=== PATIENT | female | born 1990 | race Caucasian/White ===

== ENCOUNTER 2018-05-13 15:11 | Outpatient (CLI) | payer BC, SELFPAY ==
[2018-05-13 17:23] LABS: *AMPHETAMINES SCREEN URINE Negative (Negative); *BARBITURATES SCREEN URINE Negative (Negative); *BENZODIAZEPINES SCREEN URINE Negative (Negative); Cannabinoids THC Negative (Negative); Cocaine Screen,Urine Negative (Negative); METHADONE URINE SCREEN Negative (Negative); OPIATES URINE SCREEN Negative (Negative)
[2018-05-13 17:25] LABS: Tricyclic Antidepressants Negative (Negative)
[2018-05-20 15:19] LABS: Buprenorphine Negative; Norbuprenorphine Negative
== END 2018-05-13 15:12 ==
PROVIDERS: PCP Nurse Practitioner Family; Visit Provider Midwife
DX: Z34.91 Encounter for supervision of normal pregnancy, unspecified, first trimester (principal)
CPT/HCPCS: 80307; 88142; 87086

== ENCOUNTER 2018-05-13 16:28 | Outpatient (REF) | payer BC, SELFPAY ==
--- NOTE | 2018-05-13 15:30 | PAPFT_PTH ---
PATIENT: Becky Rascon LOC: [facility] U#:[id number] AGE/SX: 27/F ROOM: RE05/13/[address]: Amelia Crooks : 1990 BED: DIS: 05/13/2018 SPEC #: [id number] RECD: 05/13/18 17:13 STATUS: KAREN RERamona #: [id number] IVÁN: 05/13/18 15:[address]: Amelia Crooks DEPT: [facility] Cytology RECD BY: Rosa Vargas ENTERED: 05/13/18 17:13 SP TYPE: PAPFT BROOKS DR: Alondra Cavanaugh, SKI TECHNICIAN Tissues: 1 - CX/ENDOCX FOR PAP SMEARS Procedures: PAP THIN PREP/UVM Screening Comments: [id number]
[2018-05-16 15:06] LABS: Chlamydia Result Negative; GC Result Negative; Specimen Description CERVICAL
== END 2018-05-13 16:29 ==
LOC: LBN 16:28
PROVIDERS: PCP Nurse Practitioner Family; Visit Provider Midwife
DX: Z34.91 Encounter for supervision of normal pregnancy, unspecified, first trimester (principal); Z11.3 Encounter for screening for infections with a predominantly sexual mode of transmission; Z12.4 Encounter for screening for malignant neoplasm of cervix
CPT/HCPCS: 87491; 87591; 88142

== ENCOUNTER 2018-05-27 09:12 | Outpatient (CLI) | payer BC, SELFPAY ==
[2018-05-27 10:45] LABS: Abs Immature Grans 0.01 k/cumm (0.0-0.09); Absolute Basophil Count 0.01 k/cumm (0.0-0.2); Absolute Eosinophil Count 0.17 k/cumm (0.0-0.7); Absolute Lymphocyte Count 1.36 k/cumm (1.2-3.4); Absolute Monocyte Count 0.56 k/cumm (0.11-0.7); Absolute Neutrophil Count 2.87 k/cumm (1.2-6.7); Basophils % 0.2; Eosinophils % 3.4; HCT 38.1 % (36.0-46.0); HGB 13.1 g/dL (12.0-15.5); Immature Grans % 0.2; Lymphocytes % 27.3; Mean Corp. HGB Concentration 34.4 g/dL (32.0-36.0); Mean Corpuscular Hemoglobin 30.8 pg (27.0-33.0); Mean Corpuscular Volume 89.6 fL (80-95); Mean Platelet Volume 8.7 fL (8.0-11.0); Monocytes % 11.2; Neutrophils % 57.7; Platelet Count 235 x1000/uL (130-400); RBC 4.25 m/cumm (4.00-5.20); RBC Distribution Width 11.8 % (11.7-14.6); White Blood Cell Count 4.98 k/cumm (4.4-10.8)
[2018-05-27 10:58] LABS: Glucose,1 Hr (Glucola) 40 mg/dL (80-140)
[2018-05-29 13:24] LABS: HIV-1/2 Ag & Ab Screen Negative (NEGAT)
[2018-05-30 13:03] LABS: Syphilis Serology (RPR) Negative (Negative)
[2018-05-30 13:23] LABS: Rubella IgG Ab (UVM) Positive
[2018-05-30 14:19] LABS: Hepatitis B Surface Ag Negative (NEGAT)
[2018-05-30 14:45] LABS: Hepatitis C Ab w Rflx HCV PCR Negative (NEGAT)
== END 2018-05-27 09:32 ==
PROVIDERS: PCP Nurse Practitioner Family; Visit Provider Midwife
DX: Z34.91 Encounter for supervision of normal pregnancy, unspecified, first trimester (principal)
CPT/HCPCS: 36415; 80055; 82950; 86850; 86900; 86901

== ENCOUNTER 2018-07-06 00:46 | Outpatient (CLI) | payer BC, SELFPAY ==
--- NOTE | 2018-07-06 14:12 | DI.US_ITS ---
SYMPTOMS/DIAGNOSIS: ROUTINE CARE, Z34.90 OB ULTRASOUND: Many abnormalities cannot be diagnosed. A normal exam does not exclude a congenital anomaly. Radiology No. [id number] LMP: 03/01/18 Exam Date: 07/06/[address] [facility] wks days on EDC ([facility]) 12/06/17 Confirmed: HISTORY: ---- PREDICTED GESTATIONAL AGE NUMBER 18 weeks with a range of 17 weeks to 19 weeks. 1 Determined by___1STUS__X_LMP___HISTORY PLACENTA PRESENTATION Grade 0-I Cephalic___ Anterior___Posterior_X__ Breech__X__ Right Left Transverse(head right___ Fundal___Low-lying___Previa___ Transverse(head left___ Varying BIOMETRY AMNIOTIC FLUID BPD: 42 mm 18+4 weeks Normal HC: 155 mm 18+5 weeks AC: 140 mm 19+2 weeks FL: 28 mm 18+4 weeks AMNIOTIC FLUID INDEX >26 WK CRL: mm weeks Cisterna Magna: 3 mm CI: 0.8 RUQ: LUQ Cerebellum: 1.8 cm EFW: grams Percentile RLQ: LLQ Total: cms Composite AGE= 18+5 wks EDC by US: 12/02/18 BIOPHYSICAL PROFILE ANATOMY IDENTIFIED SCORE 0/2 Heart: 4-Chamber_X__Rate:BPM 149 LVOT:___X RVOT:___X Amniotic Fluid(>2cms)____ Stomach:__X Kidneys:__X Respirations (>30 secs) Bladder:___X Post. Fossa:___X Body Flex/Extension 3-vessel cord:__X Ventricles:___X Cord insertion:__X___ Lips:_X___ Extremity Flex/Extension Spinal morphology:____X____Nose:__X___ Total Score= Palate:__X NS=not seen COMMENTS: There is a single intrauterine gestation in breech position. The placenta is posterior. The biometric measurements correspond to 18 weeks 5 days. The amniotic fluid appears normal. No abnormalities are identified. IMPRESSION: survey is within normal limits.
== END 2018-07-06 01:06 ==
PROVIDERS: PCP Nurse Practitioner Family; Visit Provider Advanced Practice Midwife
DX: Z34.92 Encounter for supervision of normal pregnancy, unspecified, second trimester (principal)
CPT/HCPCS: 76805

== ENCOUNTER 2018-09-12 08:13 | Outpatient (CLI) | payer BC, SELFPAY ==
[2018-09-12 09:08] LABS: Glucose,1 Hr (Glucola) 90 mg/dL (80-140)
[2018-09-12 09:28] LABS: HCT 35.9 % (36.0-46.0); HGB 12.1 g/dL (12.0-15.5); Mean Corp. HGB Concentration 33.7 g/dL (32.0-36.0); Mean Corpuscular Hemoglobin 30.9 pg (27.0-33.0); Mean Corpuscular Volume 91.8 fL (80-95); Mean Platelet Volume 8.8 fL (8.0-11.0); Platelet Count 247 x1000/uL (130-400); RBC 3.91 m/cumm (4.00-5.20); RBC Distribution Width 11.9 % (11.7-14.6); White Blood Cell Count 6.42 k/cumm (4.4-10.8)
== END 2018-09-12 08:33 ==
PROVIDERS: Advanced Practice Midwife; PCP Nurse Practitioner Family; Visit Provider Advanced Practice Midwife
DX: Z34.93 Encounter for supervision of normal pregnancy, unspecified, third trimester (principal)
CPT/HCPCS: 36415; 82950; 85027

== ENCOUNTER 2018-11-14 12:08 | Outpatient (REF) | payer BC, SELFPAY | END 2018-11-14 12:28 | LOC: LBN 12:08 | PROVIDERS: PCP Nurse Practitioner Family; Visit Provider Advanced Practice Midwife | DX: Z34.93 Encounter for supervision of normal pregnancy, unspecified, third trimester (principal); Z36.85 Encounter for antenatal screening for Streptococcus B | CPT/HCPCS: 87081 ==

== ENCOUNTER 2018-12-12 07:45 | Emergency (ER) | payer BC, SELFPAY ==
[2018-12-12 07:50] VITALS: BP 130/82; PULSE 78; RESP 16; TEMP 36.5; O2SAT 100
--- NOTE | 2018-12-12 07:53 | W.ED.GENAD ---
Discharge Plan Discharge Details Chief Complaint: ACCOUNTING BOOKKEEPER Primary Care Provider: Alondra Cavanaugh ED Provider: Samia Lund Home Meds and New Rx's Prescriptions: No Action breast pump device .ROUTE .MEDSUPPLY Qty: 1 RF: 0 levalbuterol tartrate [Xopenex HFA] 15 GM HFA aerosol inhaler 1 - 2 puff Inhalation Q6H PRN Qty: 1 RF: 3 Elite-OB 1 EACH tablet 1 ea PO RF: 0 epinephrine [EpiPen] 0.3 MG/0.3 ML auto-injector 0.3 mg IJ PRN PRN (Reason: Anaphylaxis) Qty: 1 RF: 0 Medical Decision Making Becky aRscon is a 28-year-old woman with history of asthma presenting to the emergency department complaining of labor contractions. On exam patient is well and nontoxic appearing. She is gwendolyn approximately every 4 minutes. She has a benign physical exam. Patient has reported that her water has not broken, and there has been no leakage of fluids. Will defer vaginal exam. Concern for first stage of labor. Exam/history is not consistent with precipitous delivery, preeclampsia, other acute emergent life-threatening pathology. Plan to transfer patient to labor and delivery. Patient accepted to labor and delivery by Dr. Garcia. Medical Records Medical records reviewed: Yes I reviewed the patient's medical records. HPI General Mode of arrival: ambulatory. Date/Time Provider Initiated Documentation: 12/12/18 07:53. Limitations to Documentation: no limitations. Information obtained by: patient, family, RN notes reviewed and old records reviewed. HPI Narrative: Becky Rascon is a 28 y/o woman without reported major medical problems presenting to the emergency department with labor contractions. Patient is , due 12/14/18. Patient reports that at approximately 3 AM this morning she began having contractions. She has had no leaking of fluids or vaginal bleeding. Patient reports contractions are coming every 3-5 minutes approximately. She reports that they have gotten stronger since onset. She has had no complications during this , and takes no medications other than vitamins. Patient reports that her prior and delivery were uncomplicated. She denies any pain, fevers or other symptoms other than labor contractions. Related Data Home Medications Medication Instructions Recorded Confirmed levalbuterol tartrate [Xopenex HFA] 1 - 2 puff INHALATION Q6H PRN #1 08/03/16 12/12/18 inhaler epinephrine [Epipen] 0.3 mg IJ PRN PRN #1 auto.injct 12/01/17 12/12/18 cwv-sxcb-qldi-folic 1 ea PO 05/13/18 12/05/18 [Elite-Ob Caplet] breast pump #1 each 10/24/18 12/05/18 Previous Rx's Medication Instructions Recorded epinephrine [Epipen] 0.3 mg IJ PRN PRN #1 auto.injct 12/01/17 breast pump #1 each 10/24/18 Allergies Allergy/AdvReac Type Severity Reaction Status Date / Time fish derived Allergy Unverified 12/12/18 07:53 shrimp Allergy Unverified 12/12/18 07:53 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 Review of Systems Review of Systems Constitutional: denies fevers Eyes: denies eye pain ENT: denies facial pain, dental pain, sore throat Cardiovascular: denies chest pain, reports mild lower extremity edema chronic over the past few weeks and unchanged Respiratory: denies SOB GI: denies abdominal pain, vomiting : denies flank pain MSK: denies back pain, neck pain, arthralgias, myalgias Skin: denies rash Neuro: denies headaches [facility] Medical History Family history of genetic disorder (Chronic) BMI 38.0-38.9,adult (Chronic) (Acute) Family History Grandfather Essential hypertension Hypercholesterolemia Grandmother No problems noted. Daughter Epilepsy Vitamin B6 deficiency syndrome Social History Smoking/Tobacco Use Status: Never Alcohol Intake: never Drug use: Never Substance use type: does not use Household members: significant other and children current occupation: works @ [employer] Pets and animals: Yes (1 dog) Special mansoor needs: No Seatbelt use: always Helmet use: Yes Drive intox or ride w/intox truck driver's offsider: No Water heater temp set <120 deg: Yes Working smoke detector in home: Yes Fire extinguisher in home: Yes Carbon monox detector in home: Yes Firearms in home: Yes Firearms unloaded and locked: Yes Do you feel safe in your relationship?: Yes Victim of physical abuse: No Victim of emotional abuse: No Victim of sexual abuse: No History History 2 Para 1 Hx # Term Pregnancies 0 Multiple births 0 Hx # Pregnancies 0 Ectopic pregnancies 0 AB induced 0 Hx Number of Living Children 1 AB spontaneous 0 Past Pregnancies Del. Date GA/Weeks # Outcome Route Wgt Sex Labor Lgth Anesthesia Location Prov Compl 12/15/12 40 Successful vaginal 3.317 kg Female 17 hrs [facility] Delivery Date: 12/15/12 On 07/06/18 @ 15:48 Sarahi Rivero 45 minute second stage Anita Exam Narrative Exam Narrative: Constitutional: well and uir-trumo-xiirjleyt, pleasant, conversing normally, uncomfortable during contractions HENT: head atraumatic/normocephalic/normal inspection, mucous membranes moist Eyes: conjunctiva normal, sclera normal, pupils 3mm b/l Neck: no stridor, normal ROM, trachea midline Chest: normal inspection Resp: normal work of breathing, LCTAB Cardio: normal rate, normal rhythm, no murmur appreciated GI: abdomen gravid, nontender to palpation Skin: warm, dry, normal color, no rash Neuro: alert, not altered, grossly non-focal, normal tone, normal gait Ext: no edema or posterior calf tenderness Psych: normal mood, normal affect, normal behavior Course Vital Signs Temperature 36.5 C 12/12/18 07:50 Pulse 78 12/12/18 07:50 Respiratory Rate 16 12/12/18 07:50 Blood Pressure 130/82 12/12/18 07:50 Pulse Oximetry 100 12/12/18 07:50 Temperature 36.5 C 12/12/18 07:50 Temperature Source Skin 12/12/18 07:50 Pulse 78 12/12/18 07:50 Respiratory Rate 16 12/12/18 07:50 Respiratory Effort Non-Labored 12/12/18 07:50 Blood Pressure 130/82 12/12/18 07:50 Blood Pressure Position Sitting 12/12/18 07:50 Pulse Oximetry 100 12/12/18 07:50 Oxygen Delivery Method Room Air 12/12/18 07:50 Oxygen Flow Rate 0 12/12/18 07:50 Pain Level 2 12/12/18 07:50
--- NOTE | 2018-12-12 08:00 | ED.GENADUL_ITS ---
Discharge Plan Discharge Details Chief Complaint: RESIDENTIAL REAL ESTATE APPRAISER Primary Care Provider: Alondra Cavanaugh ED Provider: Samia Lund Home Meds and New Rx's Prescriptions: No Action breast pump device .ROUTE .MEDSUPPLY Qty: 1 RF: 0 levalbuterol tartrate [Xopenex HFA] 15 GM HFA aerosol inhaler 1 - 2 puff Inhalation Q6H PRN Qty: 1 RF: 3 Elite-OB 1 EACH tablet 1 ea PO RF: 0 epinephrine [EpiPen] 0.3 MG/0.3 ML auto-injector 0.3 mg IJ PRN PRN (Reason: Anaphylaxis) Qty: 1 RF: 0 Medical Decision Making Becky Rascon is a 28-year-old woman with history of asthma presenting to the emergency department complaining of labor contractions. On exam patient is well and nontoxic appearing. She is gwendolyn approximately every 4 minutes. She has a benign physical exam. Patient has reported that her water has not broken, and there has been no leakage of fluids. Will defer vaginal exam. Concern for first stage of labor. Exam/history is not consistent with precipitous delivery, preeclampsia, other acute emergent life-threatening pathology. Plan to transfer patient to labor and delivery. Patient accepted to labor and delivery by Dr. Garcia. Medical Records Medical records reviewed: Yes I reviewed the patient's medical records. HPI General Mode of arrival: ambulatory . Date/Time Provider Initiated Documentation: 12/12/18 07:53 . Limitations to Documentation: no limitations . Information obtained by: patient, family, RN notes reviewed and old records reviewed . HPI Narrative: Becky Rascon is a 28 y/o woman without reported major medical problems presenting to the emergency department with labor con tractions. Patient is , due 12/14/18. Patient reports that at approximately 3 AM this morning she began having contractions. She has had no leaking of fluids or vaginal bleeding. Patient reports contractions are coming every 3-5 minutes approximately. She reports that they have gotten stronger since onset. She has had no complications during this , and takes no medications other than vitamins. Patient reports that her prior and delivery were uncomplicated. She denies any pain, fevers or other symptoms other than labor contractions. Related Data Home Medications Medication Instructions Recorded Confirmed levalbuterol tartrate [Xopenex HFA] 1 - 2 puff INHALATION Q6H PRN #1 08/03/16 12/12/18 inhaler epinephrine [Epipen] 0.3 mg IJ PRN PRN #1 auto.injct 12/01/17 12/12/18 qfw-tadi-jkfd-folic 1 ea PO 05/13/18 12/05/18 [Elite-Ob Caplet] breast pump #1 each 10/24/18 12/05/18 Previous Rx's Medication Instructions Recorded epinephrine [Epipen] 0.3 mg IJ PRN PRN #1 auto.injct 12/01/17 breast pump #1 each 10/24/18 Allergies Allergy/AdvReac Type Severity Reaction Status Date / Time fish derived Allergy Unverified 12/12/18 07:53 shrimp Allergy Unverified 12/12/18 07:53 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 Review of Systems Review of Systems Constitutional: denies fevers Eyes: denies eye pain ENT: denies facial pain, dental pain, sore throat Cardiovascular: denies chest pain, reports mild lower extremity edema chronic over the past few weeks and unchanged Respiratory: denies SOB GI: denies abdominal pain, vomiting : denies flank pain MSK: denies back pain, neck pain, arthralgias, myalgias Skin: denies rash Neuro: denies headaches [facility] Medical History Family history of genetic disorder (Chronic) BMI 38.0-38.9,adult (Chronic) (Acute) Family History Grandfather Essential hypertension Hypercholesterolemia Grandmother No problems noted. Daughter Epilepsy Vitamin B6 deficiency syndrome Social History Smoking/Tobacco Use Status: Never Alcohol Intake: never Drug use: Never Substance use type: does not use Household members: significant other and children current occupation: works @ [employer] Pets and animals: Yes (1 dog) Special mansoor needs: No Seatbelt use: always Helmet use: Yes Drive intox or ride w/intox driver guide: No Water heater temp set <120 deg: Yes Working smoke detector in home: Yes Fire extinguisher in home: Yes Carbon monox detector in home: Yes Firearms in home: Yes Firearms unloaded and locked: Yes Do you feel safe in your relationship?: Yes Victim of physical abuse: No Victim of emotional abuse: No Victim of sexual abuse: No History History 2 Para 1 Hx # Term Pregnancies 0 Multiple births 0 Hx # Pregnancies 0 Ectopic pregnancies 0 AB induced 0 Hx Number of Living Children 1 AB spontaneous 0 Past Pregnancies Del. Date GA/Weeks # Outcome Route Wgt Sex Labor Lgth Anesthesia Location Prov Complic 12/15/12 40 Successful vaginal 3.317 kg Female 17 hrs [facility] Delivery Date: 12/15/12 On 07/06/18 @ 15:48 Sarahi Rivero 45 minute second stage Anita Exam Narrative Exam Narrative: Constitutional: well and ijf-oxkrj-ujmgcxeqs, pleasant, conversing normally, uncomfortable during contractions HENT: head atraumatic/normocephalic/normal inspection, mucous membranes moist Eyes: conjunctiva normal, sclera normal, pupils 3mm b/l Neck: no stridor, normal ROM, trachea midline Chest: normal inspection Resp: normal work of breathing, LCTAB Cardio: normal rate, normal rhythm, no murmur appreciated GI: abdomen gravid, nontender to palpation Skin: warm, dry, normal color, no rash Neuro: alert, not altered, grossly non-focal, normal tone, normal gait Ext: no edema or posterior calf tenderness Psych: normal mood, normal affect, normal behavior Course Vital Signs Temperature 36.5 C 12/12/18 07:50 Pulse 78 12/12/18 07:50 Respiratory Rate 16 12/12/18 07:50 Blood Pressure 130/82 12/12/18 07:50 Pulse Oximetry 100 12/12/18 07:50 Temperature 36.5 C 12/12/18 07:50 Temperature Source Skin 12/12/18 07:50 Pulse 78 12/12/18 07:50 Respiratory Rate 16 12/12/18 07:50 Respiratory Effort Non-Labored 12/12/18 07:50 Blood Pressure 130/82 12/12/18 07:50 Blood Pressure Position Sitting 12/12/18 07:50 Pulse Oximetry 100 12/12/18 07:50 Oxygen Delivery Method Room Air 12/12/18 07:50 Oxygen Flow Rate 0 12/12/18 07:50 Pain Level 2 12/12/18 07:50
== END 2018-12-12 08:07 ==
PROVIDERS: Emergency Provider Student in an Organized Health Care Education/Training Program; PCP Nurse Practitioner Family
DX: N85.8 Other specified noninflammatory disorders of uterus (principal); Z3A.39 39 weeks gestation of pregnancy
CPT/HCPCS: 99281

== ENCOUNTER 2018-12-12 07:58 | Inpatient (IN) | payer BC, SELFPAY ==
[2018-12-12 10:01] LABS: HCT 38.7 % (36.0-46.0); HGB 13.3 g/dL (12.0-15.5); Mean Corp. HGB Concentration 34.4 g/dL (32.0-36.0); Mean Corpuscular Hemoglobin 30.6 pg (27.0-33.0); Mean Platelet Volume 9.8 fL (8.0-11.0); Platelet Count 230 x1000/uL (130-400); RBC 4.35 m/cumm (4.00-5.20); RBC Distribution Width 13.2 % (11.7-14.6); White Blood Cell Count 10.84 k/cumm (4.4-10.8)
[2018-12-12] MEDS: Lidocaine 1% Pres-Free 5 ML VIAL IJ (13:05)
[2018-12-13 07:21] LABS: HCT 38.6 % (36.0-46.0); Mean Corp. HGB Concentration 33.7 g/dL (32.0-36.0); Mean Corpuscular Volume 88.9 fL (80-95); Mean Platelet Volume 9.6 fL (8.0-11.0); Platelet Count 210 x1000/uL (130-400); RBC 4.34 m/cumm (4.00-5.20); RBC Distribution Width 13.4 % (11.7-14.6); White Blood Cell Count 9.41 k/cumm (4.4-10.8)
--- NOTE | 2018-12-13 20:08 | W.PM.PROGNOT ---
Date of Service Date of service: 12/13/18 Time of Service: 15:12 Assessment and Plan (1) Insertion of implantable subdermal contraceptive: Current visit: Yes Status: Acute Subjective Interval history since last seen: Becky desires immediate nexplanon insertion for contraception. yesterday without complications. Permit reviewed and signed. Objective Objective Clinical Data: Laboratory Results WBC 9.41 k/cumm (4.4-10.8) 12/13/18 06:56 RBC 4.34 m/cumm (4.00-5.20) 12/13/18 06:56 Hgb 13.0 g/dL (12.0-15.5) 12/13/18 06:56 Hct 38.6 % (36.0-46.0) 12/13/18 06:56 MCV 88.9 fL (80-95) 12/13/18 06:56 MCH 30.0 pg (27.0-33.0) 12/13/18 06:56 MCHC 33.7 g/dL (32.0-36.0) 12/13/18 06:56 RDW 13.4 % (11.7-14.6) 12/13/18 06:56 Plt Count 210 x1000/uL (130-400) 12/13/18 06:56 MPV 9.6 fL (8.0-11.0) 12/13/18 06:56 Patient ABO/Rh A Positive 12/12/18 09:41 Antibody Screen Negative 12/12/18 09:41 Procedures Other Procedure Description/Findings: Permit signed and site marked with a pen and site cleansed with betadine and alcohol. 1 cc. xylocaine infused along site and Nexplanon inserted easily. Pressure dressing applied and precautions reviewed with patient
== END 2018-12-14 11:15 | disposition home or self-care (01) | DRG 807 ==
PROVIDERS: Advanced Practice Midwife; Admitting Provider Advanced Practice Midwife; PCP Nurse Practitioner Family; Visit Provider Advanced Practice Midwife
DX: O70.0 First degree perineal laceration during delivery (principal); Z37.0 Single live birth; O48.0 Post-term pregnancy; Z3A.40 40 weeks gestation of pregnancy; Z30.017 Encounter for initial prescription of implantable subdermal contraceptive
CPT/HCPCS: 36415; 85027; 86850; 86900; 86901; 99231

== ENCOUNTER 2019-07-08 14:05 | Emergency (ER) | payer MEDICAID, SELFPAY ==
[2019-07-08 14:10] VITALS: BP 135/75; PULSE 120; RESP 18; TEMP 37.1; O2SAT 100
--- NOTE | 2019-07-08 15:03 | ED.GENADUL_ITS ---
Discharge Plan Disposition Condition: Improving Discharge Details Chief Complaint: Headache Clinical Impression: Migraine, Viral illness Primary Care Provider: Alondra Cavanaugh ED Provider: Amelia Soto Home Meds and New Rx's Prescriptions: No Action (DME) breast pump device See Dose Instructions .ROUTE .MEDSUPPLY Qty: 1 RF: 0 Nexplanon 68 mg implant 1 implant SBD ONCE RF: 0 Elite-OB 1 EACH tablet 1 ea PO RF: 0 epinephrine [EpiPen] 0.3 MG/0.3 ML auto-injector 0.3 mg IJ PRN PRN (Reason: Anaphylaxis) Qty: 1 RF: 0 Discharge Instructions Instructions: Viral Syndrome (ED) Additional Instructions: Drink plenty of fluids. Rest activities as tolerated. Use Tylenol or Motrin for soreness if needed. These medications are safe when breast-feeding For increasing fever, worsening headache worsening neck pain as discussed your symptoms have reevaluation in the emergency room Recheck with primary care doctor if not improved in the next 1 to 2 days. Return for any chest pain, difficulty breathing, shortness of breath, difficulty breathing or increased respiratory effort when exerting yourself or for sensation of your heart racing. Observe for dizziness or lightheadedness. Return for any worsening or concerns. You were noted to have a mildly elevated heart rate when you were discharged are aware of this but would prefer not to pursue any additional testing at this time. Please return for any worsening or concerning symptoms sooner if needed as discussed Your strep testing as well as your flu testing were negative Discharge Data Discharge Date/Time-TO BE ENTERED AT DEPARTURE: 07/08/19 16:57 Medical Decision Making Is a very pleasant 28-year-old woman who presents to the emergency room complaining of migraine. Patient denies any specific injury or trauma to her head. Patient reports migraines are well known to her and this is very typical of her onset of migraines. Similar in character and onset. Patient reports no significant relief since onset yesterday, seeking management of her migraine and relief of her pain. Patient reports pain is behind her eyes diffusely through her head and to her posterior neck. Patient does report she had ill family members at home this week with cough and cold symptoms. Patient did report mild malaise today. After reevaluation after receiving Toradol and Reglan patient feels significantly better. Her headache has improved from a 7 to a 1 out of 10. Patient reports photophobia is improved. Patient reports nausea is improved. Patient reports mild posterior headache remains but again is significantly improved. Patient feels comfortable for discharge home at this time. Patient was noted to be mildly tachycardic which did also improved with IV fluids. Patient reports she feels well hydrated at this time and has desire to void. Is tolerating fluids by mouth. Patient has low-grade temperature and may have onset of viral type symptoms which may have triggered her migraine. Patient has no meningeal symptoms at this time. Is ranging her neck without any nuchal rigidity. No midline tenderness on exam. Upon discharge planning patient was again noted to be persistently mildly tachycardic. Patient's heart rate 108. I did discuss this with the patient. Patient is afebrile at this time. Denies chest pain, difficult to breathing with shortness of breath, palpitations, dizziness or lightheadedness at this time. I offered the patient a repeat of IV fluids versus further evaluation for her tachycardia however at this time she would prefer to decline any further evaluation and IV fluids. She would prefer to be discharged home at this time. She is not feeling anxious or symptomatic related to her tachycardia and would prefer close observation return for any alarming symptoms sooner if needed. Patient is aware of my concerns for tachycardia at this time as it is a change from her baseline but will closely monitor this, follow-up with her doctor and return for any alarming symptoms. The patient was stable and requested discharge. Prior to discharge, my usual and customary return precautions were reviewed with the patient - this included follow-up instructions and reasons to return to the Emergency Department if conditions worsens, does not improve as expected, or other new concerns arise. HPI General Date/Time Provider Initiated Documentation: 07/08/19 14:08 . HPI Narrative: Is a 28-year-old patient who presents with a known history of migraines typically gets 1 migraine per year. Patient reports yesterday evening on the way home she had onset of mild nausea described as a motion sickness type feeling then had onset of light sensitivity which preceded onset of her headache yesterday. Patient reports headache persists. Patient reports pain in her teeth her eyes and her head diffusely radiating back to her neck. Denies neck pain with range of motion. Patient reports this is very typical of her migraine presentation similar in character and location. Similar associated symptoms. Patient reports no nausea while at rest but does report increasing nausea with motion. Denies radiating pain into arms or legs. Denies tinnitus. Patient denies any measured fever. Patient does report her family both her and child have been sick at home this week with fever and viral type symptoms. Patient denies significant nasal congestion does report mild sore throat. Mild low-grade fever noted this morning. Unsure if she is becoming ill. Denies any begin cough, difficulty being short of breath or wheezing. Denies any chest pain. Denies abdominal pain. No other concerns or complaints at this time. Patient denies any risk or concern of as she is not sexually active currently. Patient is currently breast-feeding a 7-month-old child. Took no medications prior to arrival as she was concerned with her breast-feeding if she was capable of taking patient typically reports at onset of her headache she uses ibuprofen but did not take this time. Related Data Home Medications Medication Instructions Recorded Confirmed epinephrine [Epipen] 0.3 mg IJ PRN PRN #1 auto.injct 12/01/17 05/31/19 psx-poyy-awpc-folic 1 ea PO 05/13/18 05/31/19 [Elite-Ob Caplet] breast pump #1 each 10/24/18 05/31/19 etonogestrel 68 mg subdermal 1 implant SBD ONCE 12/26/18 05/31/19 implant Previous Rx's Medication Instructions Recorded epinephrine [Epipen] 0.3 mg IJ PRN PRN #1 auto.injct 12/01/17 breast pump #1 each 10/24/18 Allergies Allergy/AdvReac Type Severity Reaction Status Date / Time fish derived Allergy Unverified 05/31/19 10:31 shrimp Allergy Unverified 05/31/19 10:31 General Stated Complaint: Headache RANDELL: 4 Review of Systems All systems reviewed & are unremarkable except as noted in HPI and below Constitutional Constitutional: Denies chills, Denies fever(s), Reports headache(s) and Reports malaise Eyes Eyes: Denies loss of vision ENT Ears, Nose, Mouth, and Throat: Denies vertigo, Denies dizziness, Denies otalgia, Reports headache(s), Reports sinus pain, Denies sinus pressure and Reports sore throat Cardiovascular Cardiovascular: Denies dyspnea Respiratory Respiratory: Denies cough, Denies dyspnea and Denies stridor Gastrointestinal Gastrointestinal: Denies abdominal pain, Denies cramping, Denies diarrhea and Reports nausea Neurologic Neurologic: Denies vertigo, Denies dizziness, Reports headache(s), Denies loss of vision and Denies paresthesias PFSH Medical History BMI 38.0-38.9,adult (Chronic) Family history of genetic disorder (Chronic) P5P - B6 deficiency - daughter Ganglion cyst of dorsum of right wrist (Acute Unknown) Insertion of implantable subdermal contraceptive (Acute) Plantar fasciitis, bilateral (Acute) (Resolved) Family History Grandfather Essential hypertension Hypercholesterolemia Grandmother No problems noted. Daughter Epilepsy Vitamin B6 deficiency syndrome Social History Smoking/Tobacco Use Status: Never Alcohol Intake: never Drug use: Never Substance use type: does not use Household members: significant other and children current occupation: works @ [employer] 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 Date GA/Weeks # Outcome Route Wgt Sex Labor Lgth Anesthes ia Location Prov Complic 12/15/12 40 Successful vaginal 3.317 kg Female 17 hrs regional [facility] 12/12/18 40 No Successful vaginal 3.827 kg Female 9 hours 50 min reg ional Sarahi Rivero CNM Delivery Date: 12/15/12 On 07/06/18 @ 15:48 Sarahi Rivero 45 minute second stage Anita Delivery Date: 12/12/18 On 12/21/18 @ 11:03 Marla Martinez small periurethral laceration/1st degree; suture w/3-0 vicryl; Nitrous oxide for pain relief @ 6-7 cm, requested again at 9cm. Exam Narrative Exam Narrative: CONST: Healthy appearing patient, in no acute distress. Well hydrated. Alert and alert. HENMT: Head nomocephalic, normal to inspection. Atraumatic. Hearing grossly nor mal. External ear canal no erythema or swelling. TM normal bilaterally. Nose normal to inspection. No rhinnorhea. Normal facial exam. Oral mucosa normal. Tounge normal. Dentition normal. Mild pharyngeal erythema.. Uvula midline. EYES: General normal appearance. Alignment normal. Eyelids normal. Conjunctiva normal. Sclera normal. PERRL. NECK: Normal visual inspection. FROM. No lymphadenopathy. Trachea midline. No Midline tenderness. CHEST: Normal insepection of the chest. RESP: Normal respiratory effort. Speaking full sentences. No cough. No wheezing. No retractions. Clear to auscaltation. Breath sound equal and present bilaterally. CARDIO: No JVD. Normal PMI. Regular Rate. Regular Rhythm. Normal peripheral pulses. GI: Normal inspection of abdomen. No distension. Soft. Nontender. Bowel sounds present in all 4 quadrants. No rebound. No gaurding. MUSCULOSKELETAL: Normal Gait. FROM of all extremities. Distal neurovascularly intact. Sensation intact distally. SKIN: Normal. Dry. No rashes. NEURO: Alert and awake. Speech clear. Mild photosensitivity. PSYCH: Normal affect. Cooperative. Course Vital Signs Vital signs: Vital Signs Temperature 37.1 C 07/08/19 14:10 Pulse 120 H 07/08/19 14:10 Respiratory Rate 18 07/08/19 14:10 Blood Pressure 135/75 07/08/19 14:10 Pulse Oximetry 100 07/08/19 14:10 Temperature 37.1 C 07/08/19 14:10 Pulse 120 H 07/08/19 14:10 Respiratory Rate 18 07/08/19 14:10 Respiratory Effort Non-Labored 07/08/19 14:10 Blood Pressure 135/75 07/08/19 14:10 Pulse Oximetry 100 07/08/19 14:10 Oxygen Delivery Method Room Air 07/08/19 14:10 Oxygen Flow Rate 0 07/08/19 14:10 Pain Level 7 07/08/19 14:39
[2019-07-08] MEDS: Normal Saline 1,000 ML 1000 ML IV (15:06)
[2019-07-08] MEDS: Metoclopramide 10 MG/2 ML VIAL IVP (15:14)
[2019-07-08] MEDS: Ketorolac 15 MG/ML VIAL IVP (15:15)
[2019-07-08] MEDS: Normal Saline 50 ML 200 ML (15:16)
[2019-07-08 15:23] LABS: Abs Immature Grans 0.01 k/cumm (0.0-0.09); Absolute Basophil Count 0.01 k/cumm (0.0-0.2); Absolute Eosinophil Count 0.05 k/cumm (0.0-0.7); Absolute Lymphocyte Count 0.82 k/cumm (1.2-3.4); Absolute Monocyte Count 0.75 k/cumm (0.11-0.7); Basophils % 0.2; Eosinophils % 0.9; HCT 45.2 % (36.0-46.0); HGB 15.2 g/dL (12.0-15.5); Immature Grans % 0.2; Lymphocytes % 14.8; Mean Corp. HGB Concentration 33.6 g/dL (32.0-36.0); Mean Corpuscular Hemoglobin 29.3 pg (27.0-33.0); Mean Corpuscular Volume 87.1 fL (80-95); Mean Platelet Volume 8.7 fL (8.0-11.0); Monocytes % 13.5; Neutrophils % 70.4; Platelet Count 249 x1000/uL (130-400); RBC 5.19 m/cumm (4.00-5.20); RBC Distribution Width 12.6 % (11.7-14.6); White Blood Cell Count 5.54 k/cumm (4.4-10.8)
[2019-07-08 15:25] VITALS: BP 110/65; PULSE 103; RESP 14; TEMP 37.3; O2SAT 100
[2019-07-08 15:39] LABS: ALT 21 U/L (14-59); AST 13 U/L (15-37); Albumin 4.1 g/dL (3.4-5.0); Alkaline Phosphatase 122 U/L (46-116); Anion Gap 13.7 mmol/L (3-11); BUN 10 mg/dL (7-18); Bilirubin, Total 1.4 mg/dL (0.2-1.0); CO2 21.3 mmol/L (21.0-32.0); CREATININE 0.77 mg/dL (0.55-1.02); Calcium 8.6 mg/dL (8.5-10.1); Chloride 101 mmol/L (98-107); Glucose 76 mg/dL (70-100); Potassium 3.6 mmol/L (3.5-5.1); Sodium 136 mmol/L (136-145); Total Protein 8.3 g/dL (6.4-8.2)
[2019-07-08 15:42] VITALS: BP 105/61; PULSE 101; RESP 23; O2SAT 99
[2019-07-08 15:45] VITALS: PULSE 100; RESP 21; O2SAT 99
[2019-07-08 15:50] VITALS: PULSE 97; RESP 24; O2SAT 99
[2019-07-08 16:43] LABS: Bilirubin Negative (Negative); Blood Small (Negative); Clarity Clear (Clear); Glucose Negative (Negative); Ketones >=160 mg/dL (Negative); Leukocyte Esterase Trace (Negative); Nitrite Negative (Negative); Specific Gravity 1.015 (1.005-1.025); Urobilinogen 0.2 EU/dL (Up TO 0.2); pH 5.5 (5-8)
[2019-07-08 16:57] LABS: Bacteria Few HPF (Negative); C & S Indicated? Yes; Casts Negative LPF (Negative); Crystals Negative HPF (Negative); Epithelial Cells Few HPF (Negative); Mucus Negative (Negative); RBC Negative (0-2)
[2019-07-08 17:09] VITALS: BP 117/62; PULSE 108; RESP 22; TEMP 37.4; O2SAT 96
== END 2019-07-08 16:57 ==
PROVIDERS: Emergency Provider Physician Assistant; PCP Nurse Practitioner Family
DX: G43.909 Migraine, unspecified, not intractable, without status migrainosus (principal); B34.9 Viral infection, unspecified
CPT/HCPCS: 80053; 87449; 87880; 96361; 96374; 96375; 99284; 81003; 81015; 85025; 87081; 87086; J1885; J2765

== ENCOUNTER 2020-07-15 18:01 | Outpatient (REF) | payer BC, SELFPAY ==
[2020-07-15 20:39] LABS: *AMPHETAMINES SCREEN URINE Negative (Negative); *BARBITURATES SCREEN URINE Negative (Negative); *BENZODIAZEPINES SCREEN URINE Negative (Negative); Cannabinoids THC Negative (Negative); Cocaine Screen,Urine Negative (Negative); METHADONE URINE SCREEN Negative (Negative); OPIATES URINE SCREEN Negative (Negative)
[2020-07-15 20:42] LABS: Tricyclic Antidepressants Negative (Negative)
[2020-07-19 11:14] LABS: Chlamydia Result Negative (Negative); GC Result Negative (Negative); Specimen Description Cervix
[2020-07-23 12:01] LABS: Buprenorphine Negative; Norbuprenorphine Negative
== END 2020-07-15 18:21 ==
LOC: LBN 18:01
PROVIDERS: PCP Nurse Practitioner Family; Visit Provider Advanced Practice Midwife
DX: Z34.91 Encounter for supervision of normal pregnancy, unspecified, first trimester (principal)
CPT/HCPCS: 80307; 87491; 87591; 87086

== ENCOUNTER 2020-07-17 03:01 | Outpatient (CLI) | payer BC, SELFPAY ==
[2020-07-17 12:20] LABS: Abs Immature Grans 0.01 10^3/uL (0.0-0.06); Absolute Basophil Count 0.01 10^3/uL (0.0-0.2); Absolute Eosinophil Count 0.01 10^3/uL (0.0-0.7); Absolute Lymphocyte Count 1.62 10^3/uL (1.2-3.4); Absolute Monocyte Count 0.38 10^3/uL (0.1-0.8); Absolute Neutrophil Count 3.06 10^3/uL (1.2-6.7); Basophils % 0.2; Eosinophils % 0.2; HCT 39.4 % (36.0-46.0); HGB 13.2 g/dL (11.2-15.7); Immature Grans % 0.2; Lymphocytes % 31.8; MCH 30.2 pg (27.0-33.0); MCHC 33.5 % (32.0-36.0); MCV 90.2 fL (80-95); MPV 9.1 fL (8.0-11.0); Monocytes % 7.5; Neutrophils % 60.1; Nucleated RBC 0 %; Platelet Count 261 10^3/uL (130-400); RBC 4.37 10^6/uL (3.93-5.22); RDW 11.9 % (11.7-14.6); RDW-SD 39.2 fL; WBC 5.09 10^3/uL (4.4-10.8)
[2020-07-18 14:38] LABS: HIV-1/2 Ag & Ab Screen Negative (Negative)
[2020-07-19 10:08] LABS: Syphilis Total Ab w/Reflex Nonreactive (Nonreactive)
[2020-07-22 20:47] LABS: Hepatitis C Ab w Rflx HCV PCR Negative (Negative)
[2020-07-22 20:49] LABS: Hepatitis B Surface Ag Negative (Negative)
[2020-07-25 12:37] LABS: Varicella IgG Antibody Negative
[2020-10-04 15:37] LABS: Rubella IgG Ab (UVM) Positive
== END 2020-07-17 03:21 ==
PROVIDERS: PCP Nurse Practitioner Family; Visit Provider Advanced Practice Midwife
DX: Z34.91 Encounter for supervision of normal pregnancy, unspecified, first trimester (principal); Z11.4 Encounter for screening for human immunodeficiency virus [HIV]; Z11.59 Encounter for screening for other viral diseases; Z01.84 Encounter for antibody response examination
CPT/HCPCS: 36415; 86787; 86803; 86850; 86900; 86901; 87340; 87389; 84443; 85025; 86762; 86780

== ENCOUNTER 2020-11-25 10:10 | Outpatient (CLI) | payer BC, MEDICAID, SELFPAY ==
[2020-11-26 13:45] LABS: COVID-19 RT-PCR UVMMC Result Positive (Negative)
== END 2020-11-25 10:11 | disposition home or self-care (01) ==
PROVIDERS: PCP Nurse Practitioner Family; Visit Provider Nurse Practitioner
DX: Z20.822 Contact with and (suspected) exposure to COVID-19 (principal)
CPT/HCPCS: U0003

== ENCOUNTER 2023-02-03 05:21 | Outpatient (CLI) | payer BC, MEDICAID, SELFPAY ==
[2023-02-03 12:22] LABS: Anion Gap 7.4 mmol/L (3-11); BUN 15 mg/dL (7-18); CO2 25.6 mmol/L (21.0-32.0); CREATININE 0.7 mg/dL (0.55-1.02); Calcium 8.7 mg/dL (8.5-10.1); Calculated LDL 91 mg/dL (<100); Chloride 105 mmol/L (98-107); Cholesterol 156 mg/dL (<200); Estimated GFR 118.51 (mL/min/1.73m2); Glucose 89 mg/dL (74-106); HDL Cholesterol 51 mg/dL (40-60); Potassium 3.9 mmol/L (3.5-5.1); Sodium 138 mmol/L (136-145); TSH (W/Ref FT4) 1.69 uIU/mL (0.36-3.74); Triglyceride 73 mg/dL (<150)
== END 2023-02-03 05:22 | disposition home or self-care (01) ==
LOC: LBO 05:21
PROVIDERS: PCP Nurse Practitioner Family; Visit Provider Nurse Practitioner Family
DX: E66.9 Obesity, unspecified (principal)
CPT/HCPCS: 36415; 80048; 80061; 84443

== ENCOUNTER 2023-10-30 08:29 | Emergency (ER) | payer MEDICAID, SELFPAY ==
[2023-10-30 08:31] VITALS: BP 129/83; PULSE 116; RESP 18; TEMP 38.3; O2SAT 100
--- NOTE | 2023-10-30 08:45 | ED.GENADUL_ITS ---
HPI General Mode of arrival: ambulatory . Date/Time Provider Initiated Documentation: 10/30/23 08:30 . Limitations to Documentation: no limitations . Information obtained by: patient . History of Present Illness 33 year old F presents to the emergency department with the chief complaint of Sore throat, described as moderate, Quality is described as aching, Patient started experiencing this day(s) (3) and it has been constant. No relieving factors improve symptom(s), No exacerbating factors reported . Patient notes fever/chills. Patient did receive the following treatments prior to arrival, none Related Data Home Medications Medication Instructions Recorded Confirmed albuterol sulfate 90 mcg/actuation 2 puff inhalation 6XD PRN 09/28/19 10/30/23 aerosol inhaler shortness of breath or wheezing #18 grams etonogestrel 68 mg subdermal 1 implant subdermal ONCE 07/25/21 10/30/23 implant (Nexplanon) epinephrine 0.3 mg/0.3 mL 0.3 mg (0.3 mL) IM ONCE PRN 12/22/21 10/30/23 injection, auto-injector (EpiPen) Anaphylaxis #2 ea amoxicillin 875 mg-potassium 1 tab PO BID #14 tabs 10/30/23 clavulanate 125 mg tablet Previous Rx's Medication Instructions Recorded albuterol sulfate 90 mcg/actuation 2 puff inhalation 6XD PRN 09/28/19 aerosol inhaler shortness of breath or wheezing #18 grams epinephrine 0.3 mg/0.3 mL 0.3 mg (0.3 mL) IM ONCE PRN 12/22/21 injection, auto-injector (EpiPen) Anaphylaxis #2 ea amoxicillin 875 mg-potassium 1 tab PO BID #14 tabs 10/30/23 clavulanate 125 mg tablet Allergies Allergy/AdvReac Type Severity Reaction Status Date / Time fish derived Allergy Unverified 06/18/23 17:24 shrimp Allergy Unverified 06/18/23 17:24 General Stated Complaint: Sorethroat RANDELL: 4 Review of Systems All systems reviewed & are unremarkable except as noted in HPI and below Constitutional Constitutional: Reports chills, Reports fever(s) and Denies weakness ENT Ears, Nose, Mouth, and Throat: Reports odynophagia Cardiovascular Cardiovascular: Denies chest pain and Denies dyspnea Respiratory Respiratory: Reports cough and Denies dyspnea Gastrointestinal Gastrointestinal: Denies abdominal pain, Reports odynophagia and Denies vomiting Musculoskeletal Musculoskeletal: Denies joint swelling Integumentary/Breasts Skin/Breast: Denies rash Neurologic Neurologic: Denies weakness Exam Const General: no acute distress Orientation: alert HENMT Head: normal to inspection Ears: external ears normal, TM normal on the right and left TM abnormal General nose exam: external nose normal Mouth: moist mucous membranes Throat: uvula midline Eyes General: appearance normal, both eyes and all related structures Neck Neck: normal visual inspection Resp Effort & Inspection: normal respiratory effort and able to speak in complete sentences Auscultation: clear to auscultation bilaterally Cardio Rate: regular rate Heart Sounds: no murmurs Skin General skin exam: no rashes or lesions noted Neuro General: patient alert and patient oriented x3 Extrem General: normal to inspection Psych Mental Status: mental status grossly normal Course Vital Signs Vital signs: Vital Signs Temperature 38.3 C H 10/30/23 08:31 Pulse 116 H 10/30/23 08:31 Respiratory Rate 18 10/30/23 08:31 Blood Pressure 129/83 10/30/23 08:31 Pulse Oximetry 100 10/30/23 08:31 Temperature 38.3 C H 10/30/23 08:31 Temperature Source Temporal Artery Scan 10/30/23 08:31 Pulse 116 H 10/30/23 08:31 Respiratory Rate 18 10/30/23 08:31 Blood Pressure 129/83 10/30/23 08:31 Blood Pressure Position Sitting 10/30/23 08:31 Pulse Oximetry 100 10/30/23 08:31 Oxygen Delivery Method Room Air 10/30/23 08:31 Oxygen Flow Rate 0 10/30/23 08:31 Pain Level 10 10/30/23 08:31 Lab/Test Results Lab/Test Results: 10/30/23 08:44 Tonsil - Not Specified Group A Streptococcus Culture - Pending POC Strep Test-MASTER(Rapid) Start: 10/30/23 08:43 Freq: .Rapid Strep Test Status: Active Protocol: Document 10/30/23 08:44 ISABEL (Rec: 10/30/23 08:44 ISABEL [id number]) Strep test-MASTER(Rapid)-POC POC-Strep test-MASTER (Rapid) Negative POC-Strep test-MASTER (Rapid) Negative Medical Decision Making 33-year-old female with a history of asthma, comes in with 3 days of sore throat and left ear pain. She has also had subjective fevers and chills, is febrile on arrival here. She is ambulatory on arrival no visible signs of respiratory distress and no stridor or drooling. Her posterior pharynx is erythematous with exudates. Uvula is midline, no submandibular swelling, no restricted neck movements, no pain over the hyoid. Her right tympanic membrane is normal in appearance her left tympanic membrane is erythematous and bulging. Suspect strep versus viral pharyngitis versus viral URI with otitis media. Will obtain strep test, treat with dexamethasone and ibuprofen. If strep test is negative likely still treat with antibiotics. No findings on exam currently or history to suggest entities such as retropharyngeal abscess, epiglottitis, peritonsillar abscess. Strep test negative, patient still handling secretions, but is able to swallow liquids and was able to swallow oral medications, do not feel any CT imaging indicated at this time since very unlikely to be entities such as retropharyngeal abscess. She is stable for discharge, will initiate oral antibiotics, advised to follow-up with primary care provider or express care if not better within a week. Return precautions given Differential Diagnosis Differential Diagnosis: Otitis media, strep pharyngitis, viral pharyngitis Lab Data Lab results reviewed: Yes I reviewed the patient's lab results. Quality:SDOH Health Related Social Needs: No Data to Display PFSH All Active Problems (Updated 10/30/23 @ 09:19 by Vini Mendieta MD) Pharyngitis (Acute) Obesity (Chronic) Plantar fasciitis, bilateral (Acute) Ganglion cyst of dorsum of right wrist (Acute Unknown) Asthma (Chronic 03/27/13) Family History Grandfather Essential hypertension Hypercholesterolemia Grandmother No problems noted. 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 Date GA/Weeks # Preg Succ Route Wgt Sex Labor Lgth Anesth esia Location [facility] Complic 12/15/12 40 vaginal 3316.894 g Female 17 hrs regional [facility] 12/12/18 40 No vaginal 3827.186 g Female 9 hours 50 min region al Sarahi Rivero CNM Delivery Date: 12/15/12 Last Updated by: Sarahi Rivero 45 minute second stage Anita Delivery Date: 12/12/18 Last Updated by: Marla Pineda small periurethral laceration/1st degree; suture w/3-0 vicryl; Nitrous oxide for pain relief @ 6-7 cm, requested again at 9cm. Discharge Plan Disposition Patient Disposition: Home Condition: Stable Discharge Details Clinical Impression: Pharyngitis Primary Care Provider: Alondra Cavanaugh ED Provider: Vini Mendieta [place] Meds and New Rx's Prescriptions: New amoxicillin-pot clavulanate 875-125 mg tablet 1 tab PO BID Qty: 14 0RF Continued albuterol sulfate 90 mcg/actuation HFA aerosol inhaler 2 puff IH 6XD PRN (Reason: shortness of breath or wheezing) Qty: 18 0RF Nexplanon 68 mg implant 1 implant subdermal ONCE Rx Instructions: as a single dose epinephrine [EpiPen] 0.3 mg/0.3 mL auto-injector 0.3 mg IM ONCE PRN (Reason: Anaphylaxis) Qty: 2 4RF Discharge Instructions Instructions: Pharyngitis (ED) Additional Instructions: You can take 600 mg of ibuprofen and 1000 mg of acetaminophen every 6 hours as needed If not better within a week follow-up with your primary care provider or express care If you feel more ill, have severe worsening pain, or unable to swallow any liquids return to the emergency department for reevaluation
[2023-10-30 08:51] VITALS: BP 129/83; PULSE 116; RESP 18; TEMP 38.3; O2SAT 100
[2023-10-30] MEDS: Dexamethasone 10 MG/ML VIAL PO (09:02)
[2023-10-30] MEDS: Ibuprofen 600 MG TAB PO (09:02)
[2023-10-30] MEDS: Amoxicillin 875/Clav. 125 TAB PO (09:14)
--- NOTE | 2023-10-31 12:05 | NUR.NOTE ---
Accessed pt chart, for strep culture result, antibiotics on discharge. Dr. Gayatri bridges. Nursing Note:
== END 2023-10-30 09:35 | disposition home or self-care (01) ==
LOC: ER 09:36
PROVIDERS: Emergency Provider Emergency Medicine; PCP Nurse Practitioner Family
DX: J02.9 Acute pharyngitis, unspecified (principal)
CPT/HCPCS: 87426; 87880; 99283; 87081; 99284; J1100

== ENCOUNTER 2024-01-15 15:26 | Outpatient (REF) | payer MEDICAID, SELFPAY | END 2024-01-15 15:27 | disposition home or self-care (01) | LOC: LBN 15:26 | PROVIDERS: PCP Nurse Practitioner Family; Visit Provider Physician Assistant | DX: J02.9 Acute pharyngitis, unspecified (principal) | CPT/HCPCS: 87070 ==

== ENCOUNTER 2024-01-22 20:02 | Emergency (ER) | payer MEDICAID, SELFPAY ==
[2024-01-22 20:09] VITALS: BP 152/90; PULSE 83; RESP 18; TEMP 37; O2SAT 100
--- NOTE | 2024-01-22 20:12 | ED.GENADUL_ITS ---
Discharge Plan Disposition Patient Disposition: Home Condition: Stable Discharge Details Clinical Impression: Pharyngitis Primary Care Provider: Alondra Cavanaugh ED Provider: Osman Ochoa Home Meds and New Rx's Prescriptions: New amoxicillin-pot clavulanate 875-125 mg tablet 1 tab PO BID 10 Days Qty: 20 0RF Continued albuterol sulfate 90 mcg/actuation HFA aerosol inhaler 2 puff IH 6XD PRN (Reason: shortness of breath or wheezing) Qty: 18 0RF Nexplanon 68 mg implant 1 implant subdermal ONCE Rx Instructions: as a single dose epinephrine [EpiPen] 0.3 mg/0.3 mL auto-injector 0.3 mg IM ONCE PRN (Reason: Anaphylaxis) Qty: 2 4RF Discharge Instructions Instructions: Amoxicillin/Clavulanate Potassium (By mouth), Pharyngitis (ED) Additional Instructions: You were seen in the emergency department for your pharyngitis ongoing for 9 days. You have seen no improvement I think it is reasonable to treat with empirical antibiotics at this point. Please continue performing salt water gargles 3 times per day, please use therapeutic dosing of Tylenol (acetamenophen) & Advil (ibuprofen) in an alternating fashion as follows: Take 1000mg of Tylenol every 6 hours without missing doses- that is 4 times per day. Care Home in between the Tylenol dosings, take 400-600mg of Advil also on a 6 hour schedule, that is also 4 times per day. The daily maximum dosing of Tylenol is 4000mg, and the daily maximum dosing of Advil is 2400mg. This is safe to do for weeks. Please note that some common cold medications & prescription pain medications may contain acetamenophen and you need to read OTC drug labels and factor that in to maximum daily dosings. As we discussed please return to the ED for any inability to open or close your jaw any excessive drooling, any shortness of breath or cough or unilateral neck swelling or severe vocal changes. Referrals: Alondra Cavanaugh NP [Primary Care Provider] - HPI General Date/Time Provider Initiated Documentation: 01/22/24 20:10 . HPI Narrative: 33 year-old female presents to ED today by POV/ambulating with a chief complaint of sore throat with onset 9 days ago. Seen at [facility] with negative strep tests. Quality described as worsening sore throat over the week, no radiation to trismus, severe muffled voice, excessive drooling, cough, lethargy, shortness of breath. Severity is described as moderate. Palliating factors include nothing specific- trying salt water gargles and OTC analgesics/antipyretics without relief. Provoking factors include nothing specific. Patient not anticoagulated. Related Data Home Medications Medication Instructions Recorded Confirmed albuterol sulfate 90 mcg/actuation 2 puff inhalation 6XD PRN 09/28/19 01/22/24 aerosol inhaler shortness of breath or wheezing #18 grams etonogestrel 68 mg subdermal 1 implant subdermal ONCE 07/25/21 01/22/24 implant (Nexplanon) epinephrine 0.3 mg/0.3 mL 0.3 mg (0.3 mL) IM ONCE PRN 12/22/21 01/22/24 injection, auto-injector (EpiPen) Anaphylaxis #2 ea amoxicillin 875 mg-potassium 1 tab PO BID pharyngitis 10 days 01/22/24 clavulanate 125 mg tablet #20 tabs Previous Rx's Medication Instructions Recorded albuterol sulfate 90 mcg/actuation 2 puff inhalation 6XD PRN 09/28/19 aerosol inhaler shortness of breath or wheezing #18 grams epinephrine 0.3 mg/0.3 mL 0.3 mg (0.3 mL) IM ONCE PRN 12/22/21 injection, auto-injector (EpiPen) Anaphylaxis #2 ea amoxicillin 875 mg-potassium 1 tab PO BID pharyngitis 10 days 01/22/24 clavulanate 125 mg tablet #20 tabs Allergies Allergy/AdvReac Type Severity Reaction Status Date / Time fish derived Allergy Anaphylaxis Unverified 01/22/24 20:11 shrimp Allergy Anaphylaxis Unverified 01/22/24 20:11 General Stated Complaint: Sorethroat RANDELL: 4 Review of Systems All systems reviewed & are unremarkable except as noted in HPI and below Exam Narrative Exam Narrative: GENERAL APPEARANCE: Well-nourished, non-toxic, awake and alert, atraumatic, no acute distress. SKIN: Warm, pink, dry, intact, without rashes/lesions/ulcerations. HEAD: Normocephalic, atraumatic, normal hair distribution for gender/age. EYES: Pupils PERRLA, EOMs intact without nystagmus, normal conjunctiva, no exudates on lids/lashes. ENT: Nares patent, no circumoral cyanosis, no facial swelling, diffusely erythematous posterior orpharynx without exudate, uvula midline, no cervical lymphadenopathy, no nuchal rigidity NECK: Supple, trachea midline, painless cervical ROM. LUNGS/CHEST: Lungs CTA bilaterally- no rhonchi/rales/wheezes diffusely, non- labored respirations, normal A/P diameter, symmetrical expansion, no chest wall deformity HEART (CV/PV): Regular rate and rhythm without murmur, no peripheral edema, no JVD. ABDOMEN: Soft, non-distended, no guarding. MSK: Normal ROM, no swelling/deformity to bilateral UEs or LEs, moving all extremities without weakness, no cyanosis, spine midline without tenderness, normal curvature. NEURO: Mental Status AAOx4 - alert to person, place, time, events No facial droop, no forehead involvement. Motor: No focal weakness - strength 5/5 in bilateral UEs and LEs, proximal and distal, symmetric. Sensory: sensation intact to light touch globally. Gait normal: patient ambulated without ataxia into ED room. PSYCH: euthymic, cooperative, pleasant, appropriate speech Course Vital Signs Vital signs: Vital Signs Temperature 37.0 C 01/22/24 20:09 Pulse 83 01/22/24 20:09 Respiratory Rate 18 01/22/24 20:09 Blood Pressure 152/90 H 01/22/24 20:09 Pulse Oximetry 100 01/22/24 20:09 Temperature 37.0 C 01/22/24 20:09 Temperature Source Skin 01/22/24 20:09 Pulse 83 01/22/24 20:09 Respiratory Rate 18 01/22/24 20:09 Respiratory Effort Normal 01/22/24 20:11 Blood Pressure 152/90 H 01/22/24 20:09 Blood Pressure Position Sitting 01/22/24 20:09 Pulse Oximetry 100 01/22/24 20:09 Oxygen Delivery Method Room Air 01/22/24 20:09 Oxygen Flow Rate 0 01/22/24 20:09 Medical Decision Making This dictation utilizes [id number] dictation software and may contain unedited grammatical errors. 33 y/o F presents to ED today with a chief complaint of sore throat, seen at [facility] with negative strep test, has been steadily worsening throughout 9- day onset, has some mild vocal changes without muffled voice, no trismus, no unilateral neck swelling, no exudate in posterior oropharynx. Patients' medical history: Noncontributory. Family and social history: Noncontributory. Pertinent exam findings / vital signs include ENT: Nares patent, no circumoral cyanosis, no facial swelling, diffusely erythematous posterior orpharynx without exudate, uvula midline, no cervical lymphadenopathy, no nuchal rigidity. Differential / pathologies of concern include bacterial pharyngitis, unlikely SONOGRAM TECHNICIAN/RPA, unlikely epiglottitis, no thrush on tongue. Diagnostic studies of: -Rapid strep test is negative here, I did not send for culture. Interventions of: -Empiric treatment with antibiotics due to 9-day onset. ED Course/Assessment/Plan: 33-year-old otherwise healthy female presents with worsening throat pain for the past 9 days, she has a diffusely erythematous posterior oropharynx with midline uvula, no unilateral neck swelling, no trismus, I think it is reasonable to prescribe empiric antibiotics with Augmentin for likely bacterial source of infection. I counseled the patient on continuing salt water gargles and taking therapeutic dosing of Tylenol and ibuprofen with strict return criteria for trismus, severe vocal changes, excessive drooling, neck swelling. Findings not consistent with trismus, epiglottitis, SONOGRAM TECHNICIAN or RPA. Disposition of pharyngitis. Patient verbalized understanding of the plan and return to ED criteria and engaged in shared decision making. Medical Records Medical records reviewed: Yes I reviewed the patient's medical records. Quality:SDOH Health Related Social Needs: No Data to Display PFSH All Active Problems (Updated 01/22/24 @ 20:23 by BLADIMIR Nayak) Pharyngitis (Acute) Obesity (Chronic) Plantar fasciitis, bilateral (Acute) Ganglion cyst of dorsum of right wrist (Acute Unknown) Asthma (Chronic 03/27/13) Family History Grandfather Essential hypertension Hypercholesterolemia Grandmother No problems noted. Daughter Epilepsy Vitamin B6 deficiency syndrome Social History Smoking/Tobacco Use Status: Never Smoking risk assessment performed?: Yes Alcohol Intake: never Drug use: Never Substance use type: does not use Household members: significant other and children current occupation: works @ [employer] Pets and animals: Yes (1 dog) Special mansoor needs: No Seatbelt use: always Helmet use: Yes Drive intox or ride w/intox motorcycle delivery driver: No Water heater temp set <120 deg: Yes Working smoke detector in home: Yes Fire extinguisher in home: Yes Carbon monox detector in home: Yes Firearms in home: Yes Firearms unloaded and locked: Yes Do you feel safe at home: Yes Do you feel safe in your relationship?: Yes Victim of physical abuse: No Victim of emotional abuse: No Victim of sexual abuse: No History History 3 Para 2 Hx # Term Pregnancies 2 Multiple births 0 Hx # Pregnancies 0 Ectopic pregnancies 0 AB induced 0 Hx Number of Living Children 2 AB spontaneous 0 Past Pregnancies Del. Date GA/Weeks # Preg Succ Route Wgt Sex Labor Lgth Anesth esia Location [facility] Compl 12/15/12 40 vaginal 3316.894 g Female 17 hrs regional Anea 12/12/18 40 No vaginal 3827.186 g Female 9 hours 50 min region raymond Rivero CNM Delivery Date: 12/15/12 Last Updated by: Sarahi Rivero 45 minute second stage Anita Delivery Date: 12/12/18 Last Updated by: Marla Pineda small periurethral laceration/1st degree; suture w/3-0 vicryl; Nitrous oxide for pain relief @ 6-7 cm, requested again at 9cm.
[2024-01-22] MEDS: Amoxicillin 875/Clav. 125 TAB PO (20:35)
== END 2024-01-22 20:35 | disposition home or self-care (01) ==
LOC: ER 20:38
PROVIDERS: Emergency Provider Physician Assistant; PCP Nurse Practitioner Family
DX: J02.9 Acute pharyngitis, unspecified (principal)
CPT/HCPCS: 87880; 99283

== ENCOUNTER 2024-01-28 02:33 | Outpatient (CLI) | payer MEDICAID, SELFPAY ==
[2024-01-28 11:48] LABS: Absolute Basophil Count 0.02 10^3/uL (0.0-0.2); Absolute Eosinophil Count 0.01 10^3/uL (0.0-0.7); Absolute Lymphocyte Count 2.17 10^3/uL (1.2-3.4); Absolute Monocyte Count 0.43 10^3/uL (0.1-0.8); Absolute Neutrophil Count 2.32 10^3/uL (1.2-6.7); Basophils % 0.4 %; Eosinophils % 0.2 %; HCT 41.6 % (36.0-46.0); HGB 13.9 g/dL (11.2-15.7); Lymphocytes % 43.8 %; MCH 29.5 pg (27.0-33.0); MCHC 33.4 % (32.0-36.0); MCV 88 fL (80-95); MPV 8.4 fL (8.0-11.0); Monocytes % 8.7 %; Neutrophils % 46.9 %; Platelet Count 318 10^3/uL (130-400); RBC 4.71 10^6/uL (3.93-5.22); RDW 11.9 % (11.7-14.6); RDW-SD 38.8 fL; WBC 4.95 10^3/uL (4.4-10.8)
[2024-01-28 12:49] LABS: ALT 30 U/L (14-59); AST 13 U/L (15-37); Albumin 3.2 g/dL (3.4-5.0); Alkaline Phosphatase 101 U/L (46-116); Anion Gap 5.6 mmol/L (3-11); BUN 14 mg/dL (7-18); Bilirubin, Total 0.6 mg/dL (0.2-1.0); CO2 25.4 mmol/L (21.0-32.0); CREATININE 0.8 mg/dL (0.55-1.02); Calcium 8.3 mg/dL (8.5-10.1); Chloride 107 mmol/L (98-107); Estimated GFR 100.33 (mL/min/1.73m2); Glucose 81 mg/dL (74-106); Potassium 3.8 mmol/L (3.5-5.1); Sodium 138 mmol/L (136-145); TSH (W/Ref FT4) 1.35 uIU/mL (0.36-3.74); Total Protein 7.6 g/dL (6.4-8.2)
[2024-01-31 12:02] LABS: Lyme Ab w Rflx to Lyme Confirm Negative (Negative)
[2024-02-01 13:57] LABS: Anaplasma phagocytophilum Negative (Negative); B. miyamotoi PCR Negative (Negative); Babesia divergens/MO-1 Negative (Negative); Babesia duncani Negative (Negative); Babesia microti Negative (Negative); Ehrlichia chaffeensis Negative (Negative); Ehrlichia ewingii/canis Negative (Negative); Ehrlichia muris eauclairensis Negative (Negative)
== END 2024-01-28 02:34 | disposition home or self-care (01) ==
PROVIDERS: PCP Nurse Practitioner Family; Visit Provider Nurse Practitioner Family
DX: R53.83 Other fatigue (principal)
CPT/HCPCS: 36415; 80053; 87798; 84443; 85025; 86618

== ENCOUNTER 2024-05-08 11:19 | Outpatient (REF) | payer MEDICAID, SELFPAY ==
--- NOTE | 2024-05-08 11:00 | PAPFT_PTH ---
PATIENT: Becky Rascon LOC: [facility] U#:[id number] AGE/SX: 33/F ROOM: RE05/08/[address]: Ellen Mendieta NP : 1990 BED: DIS: 05/08/2024 SPEC #: [id number] RECD: 05/08/24 12:45 STATUS: KAREN REQ #: [id number] IVÁN: 05/08/24 11:[address]: Ellen Mendieta NP DEPT: [facility] Cytology RECD BY: Sulema Sandoval ENTERED: 05/08/24 12:46 SP TYPE: PAPFT OTHR DR: PAULA Redman Tissues: 1 - CX/ENDOCX FOR PAP SMEARS Procedures: PAP THIN PREP/UVM Screening HPV DNA PROBE Comments: [id number] (HPV 16 & 18/45)
== END 2024-05-08 11:20 | disposition home or self-care (01) ==
LOC: LBN 11:19
PROVIDERS: PCP Nurse Practitioner Family; Visit Provider Nurse Practitioner Women's Health
DX: Z01.419 Encounter for gynecological examination (general) (routine) without abnormal findings (principal); Z97.5 Presence of (intrauterine) contraceptive device; Z12.4 Encounter for screening for malignant neoplasm of cervix
CPT/HCPCS: 88142; 87624

== ENCOUNTER 2024-08-06 09:45 | Emergency (ER) | payer MEDICAID, SELFPAY ==
[2024-08-06 09:58] VITALS: BP 118/79; PULSE 77; RESP 18; O2SAT 96
--- NOTE | 2024-08-06 10:04 | ED.GENADUL_ITS ---
Discharge Plan Disposition Patient Disposition: Home Condition: Stable Discharge Details Clinical Impression: External otitis of right ear, Acute right otitis media Primary Care Provider: Alondra Cavanaugh ED Provider: Vini Mendieta Home Meds and New Rx's Prescriptions: New amoxicillin 875 mg tablet 875 mg PO BID 7 Days Qty: 14 0RF ofloxacin 0.3 % drops 10 drp otic (ear) BID 14 Days Qty: 10 0RF Continued albuterol sulfate 90 mcg/actuation HFA aerosol inhaler 2 puff IH 6XD PRN (Reason: shortness of breath or wheezing) Qty: 18 0RF Nexplanon 68 mg implant 1 implant subdermal ONCE Rx Instructions: as a single dose epinephrine [EpiPen] 0.3 mg/0.3 mL auto-injector 0.3 mg IM ONCE PRN (Reason: Anaphylaxis) Qty: 2 4RF nystatin-triamcinolone 100,000-0.1 unit/g-% cream 1 applic topical BID Qty: 30 1RF Discharge Instructions Additional Instructions: Take the antibiotic drops and pills as prescribed. If you are not feeling better this week follow-up with your primary care provider or [facility]. If you feel more ill or develop new symptoms such as high fevers return to the emergency department for reevaluation. HPI General Mode of arrival: ambulatory . Date/Time Provider Initiated Documentation: 08/06/24 09:47 . Limitations to Documentation: no limitations . Information obtained by: patient . History of Present Illness 33 year old F presents to the emergency department with the chief complaint of right ear pain and discharge, described as moderate, Patient reports no radiation. Patient started experiencing this week(s) (2) and it has been constant. No relieving factors improve symptom(s), No exacerbating factors reported . Patient notes denies fever/chills and shortness of breath. Patient did receive the following treatments prior to arrival, none Related Data Home Medications ?Medication ?Instructions ?Recorded ?Confirmed albuterol sulfate 90 mcg/actuation 2 puff inhalation 6XD PRN 09/28/19 08/06/24 aerosol inhaler shortness of breath or wheezing #18 grams etonogestrel 68 mg subdermal 1 implant subdermal ONCE 07/25/21 08/06/24 implant (Nexplanon) epinephrine 0.3 mg/0.3 mL 0.3 mg (0.3 mL) IM ONCE PRN 03/02/24 08/06/24 injection, auto-injector (EpiPen) Anaphylaxis #2 ea nystatin-triamcinolone 100,000 1 applic topical BID #30 grams 07/05/24 08/06/24 unit/g-0.1 % topical cream amoxicillin 875 mg tablet 875 mg PO BID 7 days #14 tabs 08/06/24 ofloxacin 0.3 % ear drops 10 drp otic (ear) BID 14 days #10 08/06/24 mL Previous Rx's ?Medication ?Instructions ?Recorded albuterol sulfate 90 mcg/actuation 2 puff inhalation 6XD PRN 09/28/19 aerosol inhaler shortness of breath or wheezing #18 grams epinephrine 0.3 mg/0.3 mL 0.3 mg (0.3 mL) IM ONCE PRN 03/02/24 injection, auto-injector (EpiPen) Anaphylaxis #2 ea nystatin-triamcinolone 100,000 1 applic topical BID #30 grams 07/05/24 unit/g-0.1 % topical cream amoxicillin 875 mg tablet 875 mg PO BID 7 days #14 tabs 08/06/24 ofloxacin 0.3 % ear drops 10 drp otic (ear) BID 14 days #10 08/06/24 mL Allergies Allergy/AdvReac Type Severity Reaction Status Date / Time fish derived Allergy Anaphylaxis Unverified 08/06/24 10:00 shrimp Allergy Anaphylaxis Unverified 08/06/24 10:00 General Stated Complaint: EarProblem RANDELL: 4 Review of Systems All systems reviewed & are unremarkable except as noted in HPI and below Constitutional Constitutional: Denies chills and Denies fever(s) ENT Ears, Nose, Mouth, and Throat: Reports ear discharge and Reports otalgia Cardiovascular Cardiovascular: Denies chest pain and Denies dyspnea Respiratory Respiratory: Denies cough and Denies dyspnea Psychiatric Psychiatric: Denies depression Exam Const General: no acute distress Orientation: alert HENMT Head: normal to inspection Ears: external ears normal, right TM abnormal and TM normal on the left General nose exam: external nose normal Mouth: moist mucous membranes Eyes General: appearance normal, both eyes and all related structures Neck Neck: normal visual inspection Resp Effort & Inspection: normal respiratory effort and able to speak in complete sentences Cardio Rate: regular rate Skin General skin exam: no rashes or lesions noted Neuro General: patient alert and patient oriented x3 Extrem General: normal to inspection Psych Mental Status: mental status grossly normal Course Vital Signs Vital signs: Vital Signs Pulse 77 08/06/24 09:58 Respiratory Rate 18 08/06/24 09:58 Blood Pressure 118/79 08/06/24 09:58 Pulse Oximetry 96 08/06/24 09:58 Pulse 77 08/06/24 09:58 Respiratory Rate 18 08/06/24 09:58 Respiratory Effort Normal, Non-Labored 08/06/24 10:00 Blood Pressure 118/79 08/06/24 09:58 Blood Pressure Position Sitting 08/06/24 09:58 Pulse Oximetry 96 08/06/24 09:58 Oxygen Delivery Method Room Air 08/06/24 09:58 Oxygen Flow Rate 0 08/06/24 09:58 Medical Decision Making 33-year-old female comes in with 2 weeks of right ear pain and discharge. Denies any fevers, no swelling or trauma. She is well-appearing on exam. Her left tympanic membrane and external auditory canal are normal in appearance. Her right TM is red and her external auditory canal is swollen with redness and tenderness during exam. She has a normal external mastoid exam. TM is intact without rupture. Findings consistent with otitis externa and also otitis media. Will start her on amoxicillin and also ofloxacin drops. She is stable for d ischarge will follow-up with her PCP and return precautions given. Quality:[facility] Health Related Social Needs: No Data to Display [facility] All Active Problems (Updated 08/06/24 @ 10:07 by Vini Mendieta MD) Acute right otitis media (Acute) External otitis of right ear (Acute) Vulvar irritation (Acute) Nexplanon in place (Chronic) Placed at [facility] March 2021 Class 3 severe obesity with body mass index (BMI) of 45.0 to 49.9 in adult (Chronic) Medical History Asthma Mostly in childhood Surgical History No pertinent past surgical history Family History Mother No problems noted. Father No problems noted. Sister No problems noted. Brother No problems noted. Daughter CAPOS syndrome Daughter No problems noted. Daughter No problems noted. Maternal Grandfather Heart disease Diabetes Hypertension Hyperlipidemia Blood clotting disorder Unknown type Maternal Grandmother No problems noted. Paternal Grandfather No problems noted. Paternal Grandmother No problems noted. Social History Smoking/Tobacco Use Status: Never Second Hand Exposure: No Smoking risk assessment performed?: Yes Alcohol Intake: current Alcohol Intake frequency: holidays/special occasions only Alcohol type: hard liquor Drug use: Never Substance use type: does not use Counseling given: No Adopted: No Household members: spouse and children Housing: house Number of Children: 4 number of grandchildren: 0 Communication Needs: None Do you need help understanding health information?: Never current occupation: works @ [employer] Pets and animals: Yes (1 dog) Sexually active: Yes Do you think of yourself as: straight/heterosexual Current gender identity: female What is your relationship status?: How often do you talk on the phone with friends or family?: three or more times per week How often do you get together with friends or relatives?: twice per week How often do you attend scientologist or sabianism services?: decline to answer Do you belong to any clubs or organized social groups?: no Panel score (0-1 are the most socially isolated patients): 2 What type of physical activity do you participate in: walking and other Details: taking care of 4 children Duration: < 15 minutes/day Frequency: 3-4 times per week Priscilla/Judaism: Non restorationism Special priscilla needs: No Seatbelt use: always Helmet use: Yes Helmet use: always Drive intox or ride w/intox sales warehouse driver: No Water heater temp set <120 deg: Yes Working smoke detector in home: Yes Fire extinguisher in home: Yes Carbon monox detector in home: Yes Firearms in home: Yes Firearms unloaded and locked: Yes Do you feel safe at home: Yes Do you feel safe in your relationship?: Yes Victim of physical abuse: No Victim of emotional abuse: No Victim of sexual abuse: No Would you like helpful sources: No Female Reproductive History Menstrual control method: implanted History History 3 Para 3 Hx # Term Pregnancies 3 Multiple births 0 Hx # Pregnancies 0 Ectopic pregnancies 0 AB induced 0 Hx Number of Living Children 3 AB spontaneous 0 Past Pregnancies Del. Date GA/Weeks # Preg Succ Route Wgt Sex Labor Lgth Anesth esia Location Prov Complic 12/15/12 40 vaginal 3316.894 g Female 17 hrs regional Anea 12/12/18 40 No vaginal 3827.186 g Female 9 hours 50 min region al Sarahi Rivero, YOVANY Delivery Date: 12/15/12 Last Updated by: Sarahi Rivero 45 minute second stage Anita Delivery Date: 12/12/18 Last Updated by: Marla Pineda small periurethral laceration/1st degree; suture w/3-0 vicryl; Nitrous oxide for pain relief @ 6-7 cm, requested again at 9cm.
--- OUTSIDE RECORDS SUMMARY | 2024-08-06 10:14 | XMS_ITS | Encounter Summary ---
Author Organization [facility] Address [address] [place] [id number] Care Team Providers Care Fur Polisher Name Role Phone Unknown, Provider Primary Care Provider Unava ilable Encounter Details Date Type Department Care Team (Late st Contact Info) Description 08/07/2020 Lab Requisition [facility] Pathology & Laboratory Medicine - [address] [address] Outr Resulting Lab, Provider Social History Tobacco Use Types Packs/Day Years Used Date Smoking Tobacco: Never Assessed Comments Unknown Sex and Gender Information Value Date Recorded Sex Assigned at Not on file Legal Sex Female 18:27 EST Gender Identity Not on file Sexual Orientation Not on file documented as of this encounter Plan of Treatment Not on file documented as of this encounter Procedures Procedure Name Priority Date/Time Associated Diagnosis Comments HIV 1/2 ANTIGEN AND ANTIBODY, 4TH GENERATION After X-Ray 07/17/2020 11:56 EST documented in this encounter Results * HIV 1/2 ANTIGEN AND ANTIBODY, 4TH GENERATION (07/17/2020 11:56 EST) HIV 1 and 2 Antibody/p24 Antigen, 4th Generation Negative Negative 08/29/2020 12:47 EST [facility] Comment: If acute HIV-1 infection is suspected in a high risk ??patient, submit plasma specimen for HIV-1 RNA quantitation test. Fourth Generation assay performed on the Siemens Centaur. Blood VENOUS BLOOD / Unknown 07/17/2020 11:56 EST 08/27/2020 9:41 EST us Provider Outr Resulting Lab IMMUNOLOGY AND SEROL OGY ORDERABLES Final Result [facility] [address] [place] [address] documented in this encounter Visit Diagnoses Not on filedocumented in this encounter Additional Health Concerns Infection Onset Date Last Indicated Resolved Time COVID-19 11/25/2020 11/25/2020 12/25/2020 22:1 5 EDT documented as of this encounter Care Teams Fur Polisher Relationship Specialty Start Date End Date Unknown, Provider, PCP - General 08/15/11 documented as of this encounter
--- OUTSIDE RECORDS SUMMARY | 2024-08-06 10:14 | XMS_ITS | Encounter Summary ---
Author Organization [facility] Address [address] [place] [address] Care Team Providers Care Cleaner Assistant Name Role Phone Unknown, Provider Primary Care Provider Unava ilable Encounter Details Date Type Department Care Team (Late st Contact Info) Description 08/07/2020 Lab Requisition [facility] Pathology & Laboratory Medicine - [place] [id number] Outr Resulting Lab, Provider Social History Tobacco Use Types Packs/Day Years Used Date Smoking Tobacco: Never Assessed Comments Unknown Sex and Gender Information Value Date Recorded Sex Assigned at Not on file Legal Sex Female 18:27 EST Gender Identity Not on file Sexual Orientation Not on file documented as of this encounter Plan of Treatment Not on file documented as of this encounter Visit Diagnoses Not on filedocumented in this encounter Additional Health Concerns Infection Onset Date Last Indicated Resolved Time COVID-19 11/25/2020 11/25/2020 12/25/2020 22:1 5 EDT documented as of this encounter Care Teams Cleaner Assistant Relationship Specialty Start Date End Date Unknown, Provider, PCP - General 08/15/11 documented as of this encounter
--- OUTSIDE RECORDS SUMMARY | 2024-08-06 10:14 | XMS_ITS | Encounter Summary ---
Author Organization [facility] Address [address] [place] [id number] Care Team Providers Care Guest Room Inspector Name Role Phone Unknown, Provider Primary Care Provider Unava ilable Encounter Details Date Type Department Care Team (Late st Contact Info) Description 01/28/2024 Lab Requisition [facility] Pathology & Laboratory Medicine - [address] [address] Outr Resulting Lab, Provider Social History Tobacco [...] Procedure Name Priority Date/Time Associated Diagnosis Comments LYME AB Routine 01/28/2024 11:24 EDT documented in this encounter Results * LYME AB (01/28/2024 11:24 EDT) Lyme Ab Negative Negative 01/31/2024 11:56 EDT [facility] Blood VENOUS BLOOD / Unknown 01/28/2024 11:24 EDT 01/28/2024 17:53 EDT us Provider Outr Resulting Lab IMMUNOLOGY AND SEROL OGY ORDERABLES Final Result [facility] [address] [place] [address] documented in this encounter Visit Diagnoses Not on filedocumented in this encounter Care Teams Guest Room Inspector Relationship Specialty Start Date End Date Unknown, Provider, PCP - General 08/15/11 documented as of this encounter
--- OUTSIDE RECORDS SUMMARY | 2024-08-06 10:14 | XMS_ITS | Encounter Summary ---
Author Organization [facility] Address [facility] [place] [address] Care Team Providers Care Billing Spec Name Role Phone Laureano Lechuga MD, Jose Primary Care Provider Encounter Details Date Type Department Care Team (Latest Contact Info) Description 12/19/2012 6:57 PM EDT - 12/19/2012 7:50 PM EDT Hospital Encounter [facility] [place] [address] Donovan Mccormick MD [facility] OBSTETRICS [place] [address] Discharge Disposition: Home Social History Tobacco Use Types Packs/Day Years Used Date Smoking Tobacco: Never Assessed Sex and Gender Information Value Date Recorded Sex Assigned at Not on file Gender Identity Not on file Sexual Orientation Not on file documented as of this encounter Discharge Instructions * Patient Instructions* Camilo Perry MD - 12/19/2012 7:35 PM EDT Patient Instructions To decrease your perineal (bottom) pain at the site of your stitches: ?? You may take acetaminophen 650mg every six hours as needed. You may also take ibuprofen 600mg every six hours as needed. I suggest alternating these two medications so that you are taking something for your pain every six hours until you are more uncomfortable. ?? Do not take more than 4000mg of acetaminophen in 24 hours. Taking more than this can cause liverproblems. ?? Fill the pericare bottle with warm water and spray during urination to dilute your urine, then use the bottle to clean yourself after going to the bathroom and gently pat dry. ?? Perform Sitz baths twice a day. Fill a bathtub with a few inches of warm water and let your bottom soak in the water for 15 minutes twice a day. This relieves swelling and discomfort. ?? Apply ice packs to your bottom as needed to relieve discomfort. Follow-up in six weeks with your care provider Activity: ?? Nothing in the vagina until your bleeding stops ?? Do not lift more than 15 pounds (anyting heavier than a gallon of milk) Please call your OB provider for the following: ?? Fever more than 100.5 degrees ?? Heavy bleeding that saturates a pad an hour ?? Increased abdominal pain, nausea , fever or chills chills ?? Increased pain, redness, discharge, or swelling in the area of stitches outside your vagina. ?? Hot, hard, tender areas on the breast and feeling generally unwell. ?? Depression Contact Numbers at [facility]: ?? If you see an vegetable buncher call: [phone] 9 am - 5 pm, after 5 pm documented in this encounter Progress Notes * Donovan Mccormick MD - 12/19/2012 7:35 PM EDT OB Triage Note Date/time of arrival: 12/19/2012/1900 Becky Rascon is a 22 y.o. G1 now P1001 who is PPD#4 s/p uncomplicated . Chief complaint/History of present illness: The patient presents for evaluation of increased perineal pain at the site of her vaginal laceration repair. Her is admitted for a neurometabolic condition at [facility]. She states that she has had increased pain since being discharged from the hospitaltwo days ago. She has also noted increased burning at the site of her repair when she urinates. Shefeels like she may have smelly discharge. Vaginal bleeding is mild and stable. She uses a pericare bottle after going to the bathroom to clean her perineum. She has not tried anything else to relieveher perineal pain. ROS: Denies chest pain, palpitations, shortness of breath, fevers/chills, nausea/vomiting. She has had anormal appetite and normal bladder and bowel habits. Ob history: OB History Grav Para Term Abortions TAB SAB Ect Mult Living 1 1 1 1 # Outc Date GA Lbr Mario/2nd Wgt Sex Del Anes PTL Lv 1 TRM 12/24 3.317kg(7lb5oz) F Patient Active Problem List Diagnoses Date Noted ??? Asthma 12/19/2012 Past surgical history: Past Surgical History Procedure Date ??? [place] tooth extraction Family history: No family history on file. Social history: Social History Occupational History ??? Not on file. Social History Main Topics ??? Smoking status: Not on file ??? Smokeless tobacco: Not on file ??? Alcohol Use: Not on file ??? Drug Use: Not on file ??? Sexually Active: Not on file Medications: Prescriptions prior to admission Medication Sig Dispense Refill ??? albuterol (PROVENTIL HFA;VENTOLIN HFA) 90 mcg/actuation inhaler Inhale 2 puffs into the lungs every 4 hours as needed. Use with spacer Allergies: No Known Allergies Physical exam: VS at 1910 Temp 36.4, HR 83, RR 20, BP 129/83 General: Well developed female. Lungs: Clear to auscultation bilaterally, no wheezes or crackles. Heart: Regular rate and rhythm, normal S1/S2, no murmurs/rubs/gallops. Abdomen: Bowel sounds present, no masses or hepatosplenomegaly, soft, nontender, nondistended. Pelvic: No malodorous discharge. No vulvovaginal erythema or edema. Normal, appropriate lochia present. Small, well-approximated perineal laceration, appearing well healing. Assessment/Plan: 22 y.o. PPD#4 s/p uncomplicated presenting with increased perineal pain at the site of a laceration repair. Exam is benign, showing well healing perineal lesion. No suspicion for infection. ?? Acetaminophen 650mg q6hrs prn and ibuprofen 600mg prn pain. Pt is advised to alternate these medications and take them scheduled initially to obtain pain control. ?? Discussed using pericare bottle for diluting urine stream as well as for perineal hygiene. ?? Sitz baths BID prn, ice packs to perineum prn. ?? Pt will contact home Ob or [facility] for increased pain, redness, swelling, discharge, fevers/chills. Pt discussed with Francisco Schaefer and Anny. CAMILO PERRY MD , PGY1 12/19/2012 I have personally reviewed this patien'ts case and agree with the note above. DONOVAN MCCORMICK MD. documented in this encounter Plan of Treatment Not on file documented as of this encounter Visit Diagnoses Not on filedocumented in this encounter Care Teams Billing Spec Relationship Specialty Start Date End Date Jose Tinsley MD [address] [facility] [address] PCP - General 08/05/10 11/25/22 documented as of this encounter
--- OUTSIDE RECORDS SUMMARY | 2024-08-06 10:14 | XMS_ITS | Encounter Summary ---
Author Organization [facility] Address [address] [place] [address] Care Team Providers Care Ambulance Operations Supervisor Name Role Phone Unknown, Provider MD Primary Care Provider Unava ilable Reason for Visit * Reason Onset Date Comments Follow-up 03/14/2021 Encounter Details Date Type Department Care Team (Late st Contact Info) Description 03/14/2021 Telephone [facility] Pediatric Genetics - [address] [address] Britney Chance MD [address] [place] [phone] Follow-up Social History Tobacco Use Types Packs/Day Years Used Date Smoking Tobacco: Never Assessed Comments Unknown Sex and Gender Information Value Date Recorded Sex Assigned at Not on file Legal Sex Female 18:27 EST Gender Identity Not on file Sexual Orientation Not on file documented as of this encounter Miscellaneous Notes * Telephone Encounter - Jeronimo Styles - 03/14/2021 1520 EDT Sarah from [employer] is working on an appeal regarding the centogene from February 08, 2020. This was done by Dr. Shah. She needs an office note to support the testing. We can fax this to: [phone] Attn: Sarah documented in this encounter Plan of Treatment Not on file documented as of this encounter Visit Diagnoses Not on filedocumented in this encounter Care Teams Ambulance Operations Supervisor Relationship Specialty Start Date End Date Unknown, Provider, PCP - General 08/15/11 documented as of this encounter
--- OUTSIDE RECORDS SUMMARY | 2024-08-06 10:14 | XMS_ITS | Encounter Summary ---
Author Organization [facility] Address [address] [place] [address] Care Team Providers Care Ammonium Hydroxide Operator Name Role Phone Unknown, Provider Primary Care Provider Unava ilable Encounter Details Date Type Department Care Team (Late st Contact Info) Description 05/13/[address] [facility] [phone] Low Lao [address] [facility] [place] [phone] Social History Tobacco Use Types Packs/Day Years [...] Procedure Name Priority Date/Time Associated Diagnosis Comments PAP TEST- RESULT ONLY Routine 05/13/2018 0:00 EDT documented in this encounter Results * PAP TEST- RESULT ONLY (05/13/2018 0:00 EDT) Pathology Report: CYTOPATHOLOGY REPORT Reports generated via electronic interface contain original data; however they are lacking the format of the original report. Caution should be taken when reading/interpreti ng unformatted reports. Name: ? BLANCA RASCON ? Accession #: ? [id number] : ? 1990 (Age: 27) ??F ?Collect Date: ? 05/13/2018 Location: ? [facility] ? Receive Date: ? 05/17/2018 Provider: ?LOW LAO Copy to: ?ABEL ADJOVU INKER MACHINE ? Specimen/Source: ?Pap Test, Cervix/Endocervix, ThinPrep Imaging System with manual evaluation Last Menstrual Period: ? 03/02/18 Menstrual/Pregnanc y Status: ? SPECIMEN ADEQUACY ? Satisfactory for Evaluation - transformation zone component present GENERAL CATEGORIZATION ? Negative for Intraepithelial Lesion or Malignancy ? Document reviewed and electronically signed by: ? PHIL Alexander(ASCP) ? Report Date: ??05/24/2018 14:27 End of Report [facility] 05/13/2018 05/17/2018 us Low Lao PATHOLOGY ORDERABLES Final Resu lt [facility] [address] [place] [address] documented in this encounter Visit Diagnoses Not on filedocumented in this encounter Care Teams Ammonium Hydroxide Operator Relationship Specialty Start Date End Date Unknown, Provider, PCP - General 08/15/11 documented as of this encounter
--- OUTSIDE RECORDS SUMMARY | 2024-08-06 10:14 | XMS_ITS | Encounter Summary ---
Author Organization [facility] Address [address] [place] [address] Care Team Providers Care Chief Dietitian Name Role Phone Unknown, Provider Primary Care Provider Unava ilable Encounter Details Date Type Department Care Team (Late st Contact Info) Description 08/15/2011 Results Only [facility] [address] [place], [place] [id number] Te Martinez MD [address] [facility] [address] [place] [address] Social History Tobacco Use Types Packs/Day Years [...] Procedure Name Priority Date/Time Associated Diagnosis Comments VARICELLA IGG ANTIBODY Routine 2 9:12 EDT ABO/RH Routine 08/15/2011 21:39 EST GLUCOSE 6-PHOSPHATE DEHYDROGENASE ENZYME ACTIVITY, BLD Routine 08/15/2011 14:00 EST documented in this encounter Results * VARICELLA IGG ANTIBODY (05/22/2012 9:12 EDT) Varicella IgG Ab Equivocal [facility] 05/22/2012 9:12 EDT 05/22/2012 18:45 EDT us Te Martinez MD IMMUNOLOGY AND SEROLOGY KATELYNN MANE Final Result [facility] [address] [place] [address] * ABO/RH (08/15/2011 21:39 EST) ABO A [facility] Rh Factor Positive [facility] 08/15/2011 21:3 9 EST 08/15/2011 21:39 EST us Te Martinez MD BLOOD BANK TESTS Final Resul t Performing Organization Address [facility] Co de Phone Number [facility] [address] [place] [address] * [id number] DEHYDROGENASE, QUANTITATIVE (08/15/2011 14:00 EST) [id number] e Dehydrogenase Quant 10.6 8.8 - 13.4 U/g Hb [facility] Comment: Performed or Referred by: [facility] Dpt of Lab Med and Path, [address] [place] [address], Lab Dir: Dhaval Elkins III, MD 08/15/2011 14:0 0 EST 08/15/2011 20:09 EST us Te Martinez MD CHEMISTRY & BLOOD GAS ORDERA BLES Final Result Performing Organization Address [facility] Co de Phone Number [facility] [address] [place] [address] documented in this encounter Visit Diagnoses Not on filedocumented in this encounter Care Teams Chief Dietitian Relationship Specialty Start Date End Date Unknown, Provider, PCP - General 08/15/11 documented as of this encounter
--- OUTSIDE RECORDS SUMMARY | 2024-08-06 10:14 | XMS_ITS | Encounter Summary ---
Author Organization [facility] Address [address] [place] [address] Care Team Providers Care Natural Resources Specialist Name Role Phone Unavailable Primary Care Provider Unavailabl e Encounter Details Date Type Department Care Team (Late st Contact Info) Description 06/01/2008 Before PRISM Converted Visit ([facility] [address] [place] [address] Myrna Fu NP [address] [place], [place] [id number] Social History Tobacco Use Types Packs/Day Years [...] Procedure Name Priority Date/Time Associated Diagnosis Comments CYTOPATHOLOGY Routine 06/01/2008 0:00 EDT documented in this encounter Results * CYTOPATHOLOGY (06/01/2008 0:00 EDT) Pathology Report: CYTOPATHOLOGY REPORT ? Reports generated via electronic interface contain original data; ? however they are lacking the format of the original report. ? Caution should be taken when reading/interpreti ng unformatted reports. ? Name: ? BLANCA RASCON ? Accession #: ? [id number] ? : ? 1990 (Age: 17) ??F ?Collect Date: ? 06/01/2008 ? Location: ? [facility] ? Receive Date: ? 06/05/2008 ? Provider: ?MOLLSMITHA D [facility] RADIOLOGICAL TECHNOLOGIST ? Copy to: ? Specimen/Source: ?ThinPrep Pap Test, Cervix/Endocervix, processed on Cytyc ThinPrep Imaging System, with manual evaluation ? Last Menstrual Period: ? 9/1/08 ? Other: ? HPVA - HPV testing requested if ASC-US on the current ThinPrep Pap test. ? SPECIMEN ADEQUACY ? Satisfactory for Evaluation ? - transformation zone component present ? GENERAL CATEGORIZATION ? Negative for Intraepithelial Lesion or Malignancy ? Document reviewed and electronically signed by: ? Nitesh Roth, CT(ASCP) ? Report Date: ??06/07/2008 07:20 ? End of Report ? [facility] 06/01/2008 06/05/2008 us Myrna Fu NP PATHOLOGY ORDERABLES Fin al Result [facility] [address] [place] [address] documented in this encounter Visit Diagnoses Not on filedocumented in this encounter
--- OUTSIDE RECORDS SUMMARY | 2024-08-06 10:14 | XMS_ITS | Encounter Summary ---
Author Organization [facility] Address [address] [place] [address] Care Team Providers Care Power And Recovery Superintendent Name Role Phone Unknown, Provider Primary Care Provider Unava ilable Encounter Details Date Type Department Care Team (Late st Contact Info) Description 05/09/2024 Lab Requisition [facility] Pathology & Laboratory Medicine - [address] [address] Ellen Mendieta, SALES PERSON [address] [place] [address] Encounter for other general examination Social History Tobacco Use Types Packs/Day Years [...] Name Priority Date/Time Associated Diagnosis Comments PAP TEST Today 05/08/2024 11:00 EDT Encounter for other general examination HPV DNA DETECTION WITH GENOTYPING, PCR Today 05/08/2024 11:00 EDT Encounter for other general examination documented in this encounter Results * HPV DNA DETECTION WITH GENOTYPING, PCR (05/08/2024 11:00 EDT) HPV High Risk type 16, PCR Negative Negative 05/18/2024 14:08 EDT [facility] HPV High Risk type 18, PCR Negative Negative 05/18/2024 14:08 EDT [facility] HPV other High Risk types, PCR Negative Negative 05/18/2024 14:08 [facility] Comment: The following Other High Risk HPV types were not detected: ??31,33, 35, 39, 45, 51, 52, 56, 58, 59, 66 and 68. Pap Test CERVIX UTERI STRUCTURE / Unknown 05/08/2024 11:00 EDT 05/17/2024 13:40 EDT us Galena John Mendieta SALES PERSON MICROBIOLOGY - GENERAL OR DERABLES Final Result [facility] [address] [place] [address] * PAP TEST (05/08/2024 11:00 EDT) Specimens A. Cervix and/or Endocervix , ThinPrep Imaging System with Manual Evaluation 05/18/2024 14:08 [facility] Specimen Adequacy Satisfactory for Evaluation - transformation zone component present 05/18/2024 14:08 [facility] General Categorization Negative for intraepithelial lesion or malignancy 05/18/2024 14:08 [facility] Attestation . 05/18/2024 14:08 [facility] at 1408 Clinical History See below 05/18/20 24 14:08 [facility] Performing Lab [facility] 05/18/2024 14:08 [facility] Scanned Images 05/18/2024 14:08 [facility] HPV High Risk type 16, PCR Negative 05/18/2024 14:08 [facility] HPV High Risk type 18, PCR Negative 05/18/2024 14:08 [facility] HPV Other High Risk Types, PCR Negative The following Other High Risk HPV types were not detected: 31,33, 35, 39, 45, 51, 52, 56, 58, 59, 66 and 68. 05/18/2024 14:08 [facility] Pap Test CERVIX UTERI STRUCTURE / Unknown 05/08/2024 11:00 EDT 05/09/2024 10:47 EDT us Ellen Mendieta SALES PERSON PATHOLOGY ORDERABLES Josefa l Result [facility] [address] [place] [address] documented in this encounter Visit Diagnoses Diagnosis Encounter for other general examination documented in this encounter Care Teams Power And Recovery Superintendent Relationship Specialty Start Date End Date Unknown, Provider, PCP - General 08/15/11 documented as of this encounter
--- OUTSIDE RECORDS SUMMARY | 2024-08-06 10:14 | XMS_ITS | Encounter Summary ---
Author Organization [facility] Address [address] [place] [address] Care Team Providers Care Heating Systems Installer Name Role Phone Unknown, Provider Primary Care Provider Unava ilable Encounter Details Date Type Department Care Team (Late st Contact Info) Description 11/25/2020 Lab Requisition [facility] Pathology & [place] [address] Outr Resulting Lab, Provider Social History Tobacco [...] Procedure Name Priority Date/Time Associated Diagnosis Comments [facility]ZCOVID-[address] [facility] Today 11/25/2020 11:16 EDT COVID-19 TESTING Routine 11/25/2020 11:1 6 EDT documented in this encounter Results * COVID-19 TEST [facility] PCR (11/25/2020 11:16 EDT) Swab ENTIRE NASOPHARYNX / Unknown 11/25/2020 11:16 EDT 11/25/2020 16:56 EDT us Provider Outr Resulting Lab MICROBIOLOGY - GENER AL ORDERABLES Final Result [facility] [address] [place] [address] * (ABNORMAL) COVID-19 TESTING (11/25/2020 11:16 EDT) COVID-19 rt-PCR Result Positive( AA) Negative 11/26/2020 13:39 EDT [facility] Comment: This test has not been FDA cleared or approved. This test has been authorized by FDA under an EUA for use by authorized laboratories. This test has been authorized only for detection of nucleic acid from 2019-nCoV, not for any other viruses or pathogens. This test is only authorized for the duration of the declaration that circumstances exist justifying the authorization of emergency use of in vitro diagnostic tests for detection and/or diagnosis of 2019-nCoV under section 564(b)(1) of Act, 21 U.S.C ?? 360bbb-3(b) (1), unless the authorization is terminated or revoked sooner. This test was developed and its performance characteristics determined by [facility]. It has not been cleared or approved by the US Food and Drug Administration. FDA does not require this test to go through premarket FDA review. This test is used for clinical purposes. It should not be regarded as investigational or for research. This laboratory is certified under the Clinical Laboratory Improvement Amendments (CLIA) as qualified to perform high complexity clinical laboratory testing. This test is based on the [facility] COVID-19 Emergency Use Authorization (EUA) assay, with minor modification as defined by the FDA Performed on the Shaser 7 Pro RT-PCR System. Performing Lab [facility] 11/26/2020 13:39 EDT [facility] Swab 11/25/2020 11:1 6 EDT 11/25/2020 16:56 EDT us Provider Outr Resulting Lab MICROBIOLOGY - GENER AL ORDERABLES Final Result [facility] [address] [place] [address] documented in this encounter Visit Diagnoses Not on filedocumented in this encounter Additional Health Concerns Infection Onset Date Last Indicated Resolved Time COVID-19 11/25/2020 11/25/2020 12/25/2020 22:1 5 EDT documented as of this encounter Care Teams Heating Systems Installer Relationship Specialty Start Date End Date Unknown, Provider, PCP - General 08/15/11 documented as of this encounter
--- OUTSIDE RECORDS SUMMARY | 2024-08-06 10:14 | XMS_ITS | Clinical Summary ---
Author Organization [facility] [place] [address] Care Team Providers Care Mold Closer Name Role Phone Alondra Cavanaugh APRN Primary Care Provider Allergies No known active allergies Medications Medication Sig Dispensed Refills Start Date End Date Status albuterol (PROVENTIL HFA;VENTOLIN HFA) 90 mcg/actuation inhaler Inhale 2 puffs into the lungs every 4 hours as needed. Use with spacer Active Active Problems Problem Noted Date Diagnosed Date Asthma 12/19/2012 Overview (12/19/2012): Last inhaler use 9 months ago. Social History Tobacco Use Types Packs/Day Years Used Date Smoking Tobacco: Never Assessed Sex and Gender Information Value Date Recorded Sex Assigned at Not on file Gender Identity Not on file Sexual Orientation Not on file Plan of Treatment Health Maintenance Due Date Last Done Comments HIV screen 2009 Hepatitis C Screening 2009 Hepatitis B vaccine (0-59 yrs) (1) 2010 Tetanus/Diphtheria/Pertussis Vaccines (1 - Tdap) 08/26 HPV test 2021 PAP Smear 2021 Covid-19 Vaccine (1 - 2023-25 season) 2024 Influenza (Flu) vaccine (1 o f 1 - Influenza standard series) 05/14/2024 Care Teams Mold Closer Relationship Specialty Start Date End Date Heroluismichael VELVET Cantu [address] [place] [address] PCP - General Family Medicine 11/26/22
--- OUTSIDE RECORDS SUMMARY | 2024-08-06 10:14 | XMS_ITS | Encounter Summary ---
Author Organization [facility] Address [address] [place] [address] Care Team Providers Care Onion Tier Name Role Phone Unknown, Provider Primary Care Provider Unava ilable Encounter Details Date Type Department Care Team (Late st Contact Info) Description 03/27/2013 Results Only [facility] [phone] Krishan Joyner, STRAWHAT INSPECTOR AND PACKER [address] [place] [address] Social History Tobacco Use Types Packs/Day Years [...] Diagnosis Comments PAP TEST- RESULT ONLY Routine 03/27/2013 0:00 EDT documented in this encounter Results * PAP TEST- RESULT ONLY (03/27/2013 0:00 EDT) Pathology Report: CYTOPATHOLOGY REPORT Reports generated via electronic interface contain original data; however they are lacking the format of the original report. Caution should be taken when reading/interpreti ng unformatted reports. Name: ? BLANCA RASCON ? Accession #: ? [id number] : ? 1990 (Age: 22) ??F ?Collect Date: ? 03/27/2013 Location: ? [facility] ? Receive Date: ? 03/29/2013 Provider: ?KRISHAN JOYNER STRAWHAT INSPECTOR AND PACKER Copy to: ? Specimen/Source: ?Pap Test, Source Not Provided, ThinPrep Imaging System with manual evaluation Last Menstrual Period: ? 03/19/13 Menstrual/Pregnanc y Status: ? Post : 6 weeks Hormonal/Contracep tive Status: ? Oral contraceptives ? SPECIMEN ADEQUACY ? Satisfactory for Evaluation - transformation zone component present GENERAL CATEGORIZATION ? Negative for Intraepithelial Lesion or Malignancy INTERPRETATION ? Shift in faye present suggestive of bacterial vaginosis. ? Document reviewed and electronically signed by: ? PHIL Morales(ASCP)(IAC) ? Report Date: ??04/04/2013 13:21 End of Report [facility] 03/27/2013 03/29/2013 us Krishan Joyner STRAWHAT INSPECTOR AND PACKER PATHOLOGY ORDERABLES Final R esult [facility] [address] [place] [address] documented in this encounter Visit Diagnoses Not on filedocumented in this encounter Care Teams Onion Tier Relationship Specialty Start Date End Date Unknown, Provider, PCP - General 08/15/11 documented as of this encounter
--- OUTSIDE RECORDS SUMMARY | 2024-08-06 10:14 | XMS_ITS | Encounter Summary ---
[place] [address] Care Team Providers Care Radio Maintainer Name Role Phone Alondra Cavanaugh APRN Primary Care Provider Reason for Referral * Consultation (Routine) - Closed Specialty Diagnoses / Procedures Referred By Contparminder t Referred To Contact Weight and Wellness Diagnoses Obesity, unspecified classification, unspecified obesity type, unspecified whether serious comorbidity present Obesity - unspecified Alondra Cavanaugh APRN [address] [place] [address] [facility] [place], [place] [address] Referral ID Status Reason Start Date Expiration Date V isits Requested Visits Authorized [id number] Closed Consult, Test & Treat PCP Updated and/or Approved 11/26/2022 11/26/2023 6 6 Encounter Details Date Type Department Care Team (Late st Contact Info) Description 11/26/2022 Transcribe Orders eDH Incoming Referrals [phone] Alondra Cavanaugh APRN [address] [place], [place] [id number] Obesity, unspecified classification, unspecified obesity type, unspecified whether serious comorbidity present Social History Tobacco Use Types Packs/Day Years Used Date Smoking Tobacco: Never Assessed Sex and Gender Information Value Date Recorded Sex Assigned at Not on file Gender Identity Not on file Sexual Orientation Not on file documented as of this encounter Plan of Treatment Scheduled Referrals Name Type Priority Associated Diagnoses Orde r Schedule Referral to [facility] Outpatient Referral Routine Obesity, Unspecified Classification, Unspecified Obesity Type, Unspecified Whether Serious Comorbidity Present Ordered: 11/26/2022 documented as of this encounter Visit Diagnoses Diagnosis Obesity, unspecified classification, unspecified obesity type, unspecified whether serious comorbidity present documented in this encounter Care Teams Radio Maintainer Relationship Specialty Start Date End Date Alondra Cavanaugh APRN [address] [place] [address] [address] [facility] [address] [place] [address] PCP - General Family Medicine 11/26/22 documented as of this encounter
--- OUTSIDE RECORDS SUMMARY | 2024-08-06 10:14 | XMS_ITS | Encounter Summary ---
Author Organization [facility] Address [address] [place] [address] Care Team Providers Care Production Graphic Designer Name Role Phone Unavailable Primary Care Provider Unavailabl e Encounter Details Date Type Department Care Team (Late st Contact Info) Description 12/26/2008 Orders Only [facility] Laboratory Services - [facility] [address] [place] [address] Guerrero Faust MD [address] [place] [address] Social History Tobacco Use Types Packs/Day Years [...] Procedure Name Priority Date/Time Associated Diagnosis Comments HPV DETECTION, HIGH RISK TYPES Routine 12/26/2008 15:05 EDT CYTOPATHOLOGY Routine 12/26/2008 0:00 EDT documented in this encounter Results * HUMAN PAPILLOMA VIRUS DNA TEST (12/26/2008 15:05 EDT) Specimen Description Cervix, ThinPrep vial [facility] Result Negative for HPV types 16, 18, 31, 33, 35, 39, 45, 51, 52, 56, 58, 59, and 68. [facility] Report Status Final 01/08/2009 [facility] 12/26/2008 15:0 5 EDT 01/01/2009 15:05 EDT us Guerrero Faust MD MICROBIOLOGY - GENERAL KATELYNN MANE Final Result [facility] [address] [place] [address] * CYTOPATHOLOGY (12/26/2008 0:00 EDT) Pathology Report: CYTOPATHOLOGY REPORT ? Reports generated via electronic interface contain original data; ? however they are lacking the format of the original report. ? Caution should be taken when reading/interpreti ng unformatted reports. ? Name: ? BLANCA RASCON ? Accession #: ? [id number] ? : ? 1990 (Age: 18) ??F ?Collect Date: ? 12/26/2008 ? Location: ? [facility] ? Receive Date: ? 12/27/2008 ? Provider: ?GUERRERO ELENAANTONI MD ? Copy to: ? Specimen/Source: ?Pap Test, Cervix/Endocervix, ThinPrep Imaging System ? with manual evaluation ? Last Menstrual Period: ? 03/29/09 ? Hormonal/Contracep tive Status: ? Oral contraceptives ? Other: ? Additional clinical information: Paps neg ? HPVDX - HPV testing requested regardless of diagnosis on current ThinPrep Pap ?? test. ? SPECIMEN ADEQUACY ? Satisfactory for Evaluation ? - transformation zone component present ? GENERAL CATEGORIZATION ? Negative for Intraepithelial Lesion or Malignancy ? INTERPRETATION ? Shift in faye present suggestive of bacterial vaginosis. ? Document reviewed and electronically signed by: ? Nitesh Roth, CT(ASCP) ? Report Date: ??01/01/2009 07:43 ? End of Report ? [facility] 12/26/2008 12/27/2008 us Guerrero Faust MD PATHOLOGY ORDERABLES Final Result [facility] [address] [place] [address] documented in this encounter Visit Diagnoses Not on filedocumented in this encounter
--- OUTSIDE RECORDS SUMMARY | 2024-08-06 10:14 | XMS_ITS | Encounter Summary ---
Author Organization [facility] Address [address] [place] [address] Care Team Providers Care Awning Spreader Name Role Phone Unknown, Provider Primary Care Provider Unava ilable Encounter Details Date Type Department Care Team (Late st Contact Info) Description 05/28/2016 Results Only [facility] [phone] Vini Dwyer MD [address] [place] [phone] Social History Tobacco Use Types Packs/Day Years [...] Procedure Name Priority Date/Time Associated Diagnosis Comments ARMY PROFILE Routine 05/28/2016 7:30 EDT TSH Routine 05/28/2016 7:30 EDT documented in this encounter Results * TSH (05/28/2016 7:30 EDT) TSH 2.03 0.55 - 4.78 uIU/ml 05/28/2016 19:35 EDT [facility] BLOOD SPECIMEN / Unknown 05/28/2016 7:30 EDT 05/28/2016 15:57 EDT us Vini Dwyer MD CHEMISTRY & BLOOD GAS O RDERABLES Final Result [facility] [address] [place] [address] * (ABNORMAL) ARMY PROFILE (05/28/2016 7:30 EDT) Glucose, Serum 60(L) 70 - 100 mg/dl 05/28/2016 16:24 EDT [facility] Cholesterol 109 mg/dl 05/28/2016 16:24 [facility] Comment: Desirable:<200 Borderline High:200-239 High:>of=980 Triglycerides 61 mg/dl 05/28/2016 16:24 T [facility] Comment: Normal:<150 Borderline High:150-199 High:200-499 Very High:>vd=377 HDL 46 mg/dl 05/28/2016 16:24 [facility] Comment: Low:<40 Normal:40-60 Desirable: >60 LDL, Calculated 51 mg/dl 6 16:24 [facility] Comment: Optimal:<100 Near Optimal:100-129 Borderline High:130-159 High:160-189 Very High:>tc=150 Chol/HDL Ratio 2.4 05/28/2016 16:24 [facility] Fasting? YES 05/28/2016 15:58 [facility] Non HDL Cholesterol 63 mg/dl 05/28/2016 16:24 [facility] Comment: Desirable:<130 Borderline:130-159 High: 160-189 Very High: >wf=255 BLOOD SPECIMEN / Unknown 05/28/2016 7:30 EDT 05/28/2016 15:57 EDT us Vini Dwyer MD CHEMISTRY & BLOOD GAS O RDERABLES Final Result [facility] [address] [place] [address] documented in this encounter Visit Diagnoses Not on filedocumented in this encounter Care Teams Awning Spreader Relationship Specialty Start Date End Date Unknown, Provider, PCP - General 08/15/11 documented as of this encounter
--- OUTSIDE RECORDS SUMMARY | 2024-08-06 10:14 | XMS_ITS | Referral Summary ---
Author Organization [facility] Address [address] [place] [address] Care Team Providers Care Turbo Operator Name Role Phone Unknown, Provider Primary Care Provider Unava ilable Encounters Date Type Department Care Team Description 05/09/2024 Lab Requisition [facility] Pathology & Laboratory Medicine - [address] [address] Ellen Mendieta APRN Encounter for other general examination from Last 3 Months Social History Tobacco Use Types Packs/Day Years Used Date Smoking Tobacco: Never Assessed Comments Unknown Sex and Gender Information Value Date Recorded Sex Assigned at Not on file Legal Sex Female 18:27 EST Gender Identity Not on file Sexual Orientation Not on file Plan of Treatment Not on file Procedures Procedure Name Priority Date/Time Associated Diagnosis Comments PAP TEST Today 05/08/2024 11:00 EDT Encounter for other general examination HPV DNA DETECTION WITH GENOTYPING, PCR Today 05/08/2024 11:00 EDT Encounter for other general examination from Last 3 Months Results * PAP TEST (05/08/2024 11:00 EDT) Specimens A. Cervix and/or Endocervix , ThinPrep Imaging System with Manual Evaluation 05/18/2024 14:08 T [facility] Specimen Adequacy Satisfactory for Evaluation - transformation zone component present 05/18/2024 14:08 T [facility] General Categorization Negative for intraepithelial lesion or malignancy 05/18/2024 14:08 T [facility] Attestation . 05/18/2024 14:08 [facility] at 1408 Clinical History See below 05/18/20 14:08 EDT [facility] Performing Lab [facility] 05/18/2024 14:08 EDT [facility] Scanned Images 05/18/2024 14:08 EDT [facility] HPV High Risk type 16, PCR Negative 05/18/2024 14:08 EDT [facility] HPV High Risk type 18, PCR Negative 05/18/2024 14:08 EDT [facility] HPV Other High Risk Types, PCR Negative The following Other High Risk HPV types were not detected: 31,33, 35, 39, 45, 51, 52, 56, 58, 59, 66 and 68. 05/18/2024 14:08 EDT [facility] Pap Test CERVIX UTERI STRUCTURE / Unknown 05/08/2024 11:00 EDT 05/09/2024 10:47 EDT us Ellen Mendieta ELECTRICAL REPAIRER PATHOLOGY ORDERABLES Josefa l Result [facility] [address] [place] [address] * HPV DNA DETECTION WITH GENOTYPING, PCR (05/08/2024 11:00 EDT) HPV High Risk type 16, PCR Negative Negative 05/18/2024 14:08 EDT [facility] HPV High Risk type 18, PCR Negative Negative 05/18/2024 14:08 EDT [facility] HPV other High Risk types, PCR Negative Negative 05/18/2024 14:08 EDT [facility] Comment: The following Other High Risk HPV types were not detected: ??31,33, 35, 39, 45, 51, 52, 56, 58, 59, 66 and 68. Pap Test CERVIX UTERI STRUCTURE / Unknown 05/08/2024 11:00 EDT 05/17/2024 13:40 EDT us Ellen Mendieta ELECTRICAL REPAIRER MICROBIOLOGY - GENERAL OR DERABLES Final Result [facility] [address] [place] [address] from Last 3 Months Care Teams Turbo Operator Relationship Specialty Start Date End Date Unknown, Provider, PCP - General 08/15/11
--- OUTSIDE RECORDS SUMMARY | 2024-08-06 10:14 | XMS_ITS | Clinical Summary ---
Author Organization [facility] Address [address] [place] [address] Care Team Providers Care Plug Paster Name Role Phone Unknown, Provider Primary Care Provider Unava ilable Encounters Date Type Department Care Team Description 05/09/2024 Lab Requisition [facility] Pathology & Laboratory Medicine - [place] [id number] Ellen Mendieta APRN Encounter for other general [...] Health Maintenance Due Date Last Done Comments Hepatitis C Screen 1990 Hepatitis B Vaccine (1 of 3 - 19+ 3-dose series) 08/26 COVID-19 Vaccine ( season) 2024 Procedures Procedure Name Priority Date/Time Associated Diagnosis Comments PAP TEST Today 05/08/2024 11:00 EDT Encounter for other general examination HPV DNA DETECTION WITH GENOTYPING, PCR Today 05/08/2024 11:00 EDT Encounter for other general examination from Last 3 Months Results * PAP TEST (05/08/2024 11:00 EDT) Specimens A. Cervix and/or Endocervix , ThinPrep Imaging System with Manual Evaluation 05/18/2024 14:08 EDT [facility] Specimen Adequacy Satisfactory for Evaluation - transformation zone component present 05/18/2024 14:08 EDT [facility] General Categorization Negative for intraepithelial lesion or malignancy 05/18/2024 14:08 EDT [facility] Attestation . 05/18/2024 14:08 T [facility] at 1408 Clinical History See below 05/18/20 14:08 EDT [facility] Performing Lab [facility] 05/18/2024 14:08 T [facility] Scanned Images 05/18/2024 14:08 EDT [facility] HPV High Risk type 16, PCR Negative 05/18/2024 14:08 EDT [facility] HPV High Risk type 18, PCR Negative 05/18/2024 14:08 [facility] HPV Other High Risk Types, PCR Negative The following Other High Risk HPV types were not detected: 31,33, 35, 39, 45, 51, 52, 56, 58, 59, 66 and 68. 05/18/2024 14:08 T [facility] Pap Test CERVIX UTERI STRUCTURE / Unknown 05/08/2024 11:00 EDT 05/09/2024 10:47 EDT us Ellen Mendieta LONG CHAIN QUILLER TENDER PATHOLOGY ORDERABLES Josefa l Result [facility] [address] [place] [phone] * HPV DNA DETECTION WITH GENOTYPING, PCR (05/08/2024 11:00 EDT) HPV High Risk type 16, PCR Negative Negative 05/18/2024 14:08 EDT [facility] HPV High Risk type 18, PCR Negative Negative 05/18/2024 14:08 EDT [facility] HPV other High Risk types, PCR Negative Negative 05/18/2024 14:08 EDT [facility] Comment: The following Other High Risk HPV types were not detected: ??31,33, 35, 39, 45, 51, 52, 56, 58, 59, 66 and 68. Pap Test CERVIX UTERI STRUCTURE / Unknown 05/08/2024 11:00 EDT 05/17/2024 13:40 EDT us Ellen Mendieta LONG CHAIN QUILLER TENDER MICROBIOLOGY - GENERAL OR DERABLES Final Result [facility] [address] [place] [address] from Last 3 Months Care Teams Plug Paster Relationship Specialty Start Date End Date Unknown, Provider, PCP - General 08/15/11
--- OUTSIDE RECORDS SUMMARY | 2024-08-06 10:14 | XMS_ITS | Continuity of Care Document ---
Author Organization [facility] Address [address] [place] [address] Support Name Relationship Address Phone JAN ARITA Personal Relationship Unknown Savana vailable Encounter [facility] NBR [id number] Date(s): 05/28/24 - 05/28/24 [facility] [address] [place], [place] [id number] Encounter Diagnosis Achilles tendon injury(Discharge Diagnosis) - 05/28/24 Discharge Disposition: Home or Self Care Attending Physician: Kadie Aranda APRN Allergies, Adverse Reactions, Alerts No Known Medication Allergies Substance Criticality Severity Reaction Reaction Severity Status shellfish High criticality Severe Act raya Assessment and Plan Extracted from: Title:[facility] Office Visit Note Author:Kadie arellano APRN Date:05/28/24 1.??Achilles tendon injury?? S86.009A Medications EpiPen 2-Jourdan 0 Refill(s) Start Date: 05/28/24 Status: Ordered Nexplanon 0 Refill(s) Start Date: 05/28/24 Status: Ordered phentermine 8 mg oral tablet 0 Refill(s) Start Date: 05/28/24 Status: Ordered Vital Signs Most recent to oldest [Reference Range]: 1 Peripheral Pulse Rate [60-100 bpm] 77 bp m (05/28/24 12:52 PM) Blood Pressure [90-140/60-90 mmHg] 129/7 7mmHg (05/28/24 12:52 PM) Mean Arterial Pressure, Cuff [65-140 mmH g] 94 mmHg (05/28/24 12:52 PM) Height 162.5 cm (05/28/24 12:52 PM) Height/Length Measured (inches) 63.98 in (05/28/24 12:52 PM) Social History Social History Type Response Tobacco Never tobacco user T obacco Use:. Sex Sex Representation Female (finding) Hospital Discharge Instructions Patient Education 05/28/2024 12:16:49 Contusion Contusion A contusion is a deep bruise. Contusions are the result of a blunt injury to tissues and muscle fibers under the skin. The injury causes bleeding under the skin. The skin over the contusion may turn blue, purple, or yellow. Minor injuries will give you a painless contusion, but more severe injuriescause contusions that can stay painful and swollen for a few weeks. Follow these instructions at home: Pay attention to any changes in your symptoms. Let your health care provider know about them. Take these actions to relieve your pain. Managing pain, stiffness, and swelling ??? Use resting, icing, applying pressure (compression), and raising (elevating) the injured area. This is often called the RICE method. ??? Rest the injured area. Return to your normal activities as told by your health care provider. Ask your health care provider what activities are safe for you. ??? If directed, put ice on the injured area. To do this: ??? Put ice in a plastic bag. ??? Place a towel between your skin and the bag. ??? Leave the ice on for 20 minutes, 2???3 times a day. ??? If your skin turns bright red, remove the ice right away to prevent skin damage. The risk of skin damage is higher if you cannot feel pain, heat, or cold. ??? If directed, apply light compression to the injured area using an elastic bandage. Make sure the bandage is not wrapped too tightly. Remove and reapply the bandage as directed by your health careprovider. ??? If possible, elevate the injured area above the level of your heart while you are sitting or lying down. General instructions ??? Take [id number] and prescription medicines only as told by your health care provider. ??? Keep all follow-up visits. Your health care provider may want to see how your contusion is healing with treatment. Contact a health care provider if: ??? Your symptoms do not improve after several days of treatment. ??? Your symptoms get worse. ??? You have difficulty moving the injured area. Get help right away if: ??? You have severe pain. ??? You have numbness in a hand or foot. ??? Your hand or foot turns pale or cold. This information is not intended to replace advice given to you by your health care provider. Make sure you discuss any questions you have with your health care provider. Document Revised: 02/15/2023 Document Reviewed: 02/15/2023 Elsevier Patient Education ?? 2022 [employer] Physician Outpatient Note * Kadie Aranda, [employer]ACHINE TENDER: PERFORM Event Display: Office Clinic Note Physician Authored Date: [id number] BLANCA FU :1990 Age:33 years Sex:Female Visit Date:05/28/2024 Chief Complaint Pt states morning she smashed her left ankle with ??a sandwich cart. Still hurts to walk on it. Noticable brusing. History of Present Illness Patient is a 33-year-old female who presents today with a??chief complaint??of??ankle pain. ??She reports morning she??was pulling a sandwich car behind her self, stopped short and struck the back of her??heel/Achilles on the cart. ??She states she noted swelling and bruising. ??She reports she continues to have pain with ambulation. Review of Systems see hpi Physical Exam Vitals & Measurements HR:??77??(Peripheral)?? BP:??129/77?? SpO2:??100%?? HT:??162.5??cm?? Pain Score:??6?posterior aspect??of the??left ankle notes some ecchymotic changes??superior??to the??calcaneus??and??migrating to the lateral aspect of the foot.?? Mild tenderness with??palpation over the??Achilles,?? no??pain with palpation over the calcaneus.?Medial and lateral malleoli are without tenderness or swelling. Medical Decision Making: Patient was evaluated for Achilles tendon injury. ??Exam does note tenderness palpation, ecchymoticchange.?? I do not feel there is??probability of tear or rupture she is not??grossly tender over??the Achilles but is mildly tender with??palpation of the tendon,??I did recommend that she??rest the foot is much as possible, RICE and follow-up for lack of improvement Assessment/Plan 1.??Achilles tendon injury??S86.009A Patient Instructions Gurmeet wrap, ice and elevation, Tylenol ibuprofen for pain. Patient Education Contusion Problem List/Past Medical History Ongoing No qualifying data Historical No qualifying data Medications EpiPen 2-Jourdan Nexplanon phentermine 8 mg oral tablet Allergies shellfish No Known Medication Allergies Social History Electronic Cigarette/Vaping Electronic Cigarette Use: Never. Tobacco Never tobacco user Tobacco Use:. Electronically Signed on 05/28/2024 15:31 EDT Kadie Aranda APRN Outpatient Summary note * Kadie Aranda APRN: PERFORM Event Display: Ambulatory Patient Summary Authored Date: [id number] BLANCA FU :1990 Age:33 years Sex:Female Visit Date:05/28/2024 Ambulatory Visit Instructions We would like to thank you for allowing us to assist you with your healthcare needs. The following includes patient education materials and information regarding your injury/illness. Your Next Steps Instructions From Your Care Team Gurmeet wrap, ice and elevation, Tylenol ibuprofen for pain. Medications What When Instructions Unchanged EPINEPHrine (EpiPen 2-Jourdan) Unchanged etonogestrel (Nexplanon) Unchanged phentermine (phentermine 8 mg oral tablet) Your Summary Your Diagnosis Achilles tendon injury Your Care Team Attending Physician - Kadie Aranda APRN Discharge Vitals Heart Rate??(Peripheral) 77 Blood Pressure?? 129/77?? SpO2?? 100% Height?? 63.98 in (162.5 cm) Allergies shellfish No Known Medication Allergies Education Materials Contusion A contusion is a deep bruise. Contusions are the result of a blunt injury to tissues and muscle fibers under the skin. The injury causes bleeding under the skin. The skin over the contusion may turn blue, purple, or yellow. Minor injuries will give you a painless contusion, but more severe injuriescause contusions that can stay painful and swollen for a few weeks. Follow these instructions at home: Pay attention to any changes in your symptoms. Let your health care provider know about them. Take these actions to relieve your pain. Managing pain, stiffness, and swelling ? Use resting, icing, applying pressure (compression), and raising (elevating) the injured area. Thisis often called the RICE method. ? Rest the injured area. Return to your normal activities as told by your health care provider. Ask your health care provider what activities are safe for you. ? If directed, put ice on the injured area. To do this: ? Put ice in a plastic bag. ? Place a towel between your skin and the bag. ? Leave the ice on for 20 minutes, 2???3 times a day. ? If your skin turns bright red, remove the ice right away to prevent skin damage. The risk of skin damage is higher if you cannot feel pain, heat, or cold. ? If directed, apply light compression to the injured area using an elastic bandage. Make sure the bandage is not wrapped too tightly. Remove and reapply the bandage as directed by your health care provider. ? If possible, elevate the injured area above the level of your heart while you are sitting or lying down. General instructions ? Take [id number]-bsqawex and prescription medicines only as told by your health care provider. ? Keep all follow-up visits. Your health care provider may want to see how your contusion is healing with treatment. Contact a health care provider if: ? Your symptoms do not improve after several days of treatment. ? Your symptoms get worse. ? You have difficulty moving the injured area. Get help right away if: ? You have severe pain. ? You have numbness in a hand or foot. ? Your hand or foot turns pale or cold. This information is not intended to replace advice given to you by your health care provider. Make sure you discuss any questions you have with your health care provider. Document Revised: 02/15/2023 Document Reviewed: 02/15/2023 Else[employer] Patient Education ?? 2022 [employer] Electronically Signed on: 05/28/2024 13:17 EDTSigned by:[email or web address] Patient Care team information Care Team Related Persons Name: JAN ARITA Insurance Providers Guarantor name: BLANCA FU [employer] Plan Information #: 2 Payer: SELF PAY Member Number: NA Policy Number: NA
[2024-08-06 10:17] VITALS: BP 118/79; PULSE 77; RESP 18; O2SAT 96
== END 2024-08-06 10:19 | disposition home or self-care (01) ==
LOC: ER 10:12
PROVIDERS: Emergency Provider Emergency Medicine; PCP Nurse Practitioner Family
DX: H92.01 Otalgia, right ear (principal); H66.91 Otitis media, unspecified, right ear; H60.91 Unspecified otitis externa, right ear
CPT/HCPCS: 99283